=== PATIENT | male | born 1950 | race Caucasian/White ===

== ENCOUNTER → 2017-04-27 | Outpatient (CLI) | payer MEDICARE, MEDICAID ==
[~2017-04-27] VITALS: Ht 175.3 cm; Wt 88.5 kg
[~2017-04-27] MED LIST: ADENOSINE 90 MG/30 ML INJ IV ONE; ASPI81CH43 PO; ATOR20TA50 PO; LEVO750T2 PO; MET25T PO; SACC250C PO
[2017-04-27 15:40] VITALS: BP 140/80
[2017-04-27 16:10] VITALS: BP 138/77
== END | disposition home or self-care (01) ==
LOC: Rad HDHVI 13:38
PROVIDERS: ATTEND Internal Medicine Cardiovascular Disease
DX: I10 Essential (primary) hypertension (principal); E78.00 Pure hypercholesterolemia, unspecified; F17.210 Nicotine dependence, cigarettes, uncomplicated; R42 Dizziness and giddiness; R05 Cough
CPT/HCPCS: 78452; 93005; 93306; 96374; 96375; A9500; G0463; J0153

== ENCOUNTER → 2017-05-10 | Outpatient (CLI) | payer MEDICARE, MEDICAID ==
[~2017-05-10] MED LIST changes: -ADENOSINE 90 MG/30 ML INJ IV ONE
[2017-05-10 12:50] VITALS: BP 139/82
[2017-05-10 13:45] VITALS: BP 129/73
[2017-05-10 16:38] LABS: Basophils # (auto) 0.1 uL; Basophils % (auto) 0.9 % (0.0-2.0); Eosinophils # (auto) 0.4 uL; Eosinophils % (auto) 3.7 % (0.0-7.0); Hematocrit 45.7 % (41.0-53.0); Hemoglobin 15.1 g/dL (13.5-17.5); Lymphocytes # (auto) 2.5 uL; Lymphocytes % (auto) 23.2 % (10.0-50.0); Mean Corpuscular Hemoglobin 32.8 pg (28.0-32.0); Mean Corpuscular Volume 99.4 fL (80.0-100.0); Mean Platelet Volume 8.6 fL (6.9-10.8); Monocytes # (auto) 0.7 uL; Monocytes % (auto) 6.8 % (0.0-12.0); Neutrophils # (auto) 7.1 uL; Neutrophils % (auto) 65.4 % (37.0-80.0); Nucleated Red Blood Cells % 0.2 %; Platelet Count (auto) 274 10^3/uL (140-450); Red Cell Distribution Width 13.8 % (11.8-14.3); White Blood Cell 10.9 10^3/uL (4.4-10.8)
[2017-05-10 16:39] LABS: BUN/Creatinine Ratio 14.4; Potassium 3.9 mmol/L (3.5-5.1)
[2017-05-10 16:42] LABS: INR 0.95 (0.9-1.15); Partial Thromboplastin Time 27.1 sec (22.64-33.71); Prothrombin Time 10.3 sec (9.37-12.3)
== END | disposition home or self-care (01) ==
LOC: Rad HDHVI 12:48
PROVIDERS: ATTEND Internal Medicine Cardiovascular Disease
DX: Z01.818 Encounter for other preprocedural examination (principal); I10 Essential (primary) hypertension; D64.9 Anemia, unspecified; R79.1 Abnormal coagulation profile; E11.9 Type 2 diabetes mellitus without complications
CPT/HCPCS: 36415; 71020; 80048; 85025; 85610; 85730; G0463

== ENCOUNTER 2017-05-12 11:15 | Day surgery (SDC) | payer MEDICARE, MEDICAID ==
[2017-05-12] MEDS ORDERED: IOHEXOL 350 MG/ML 100ML IJ ONE (12:11)
[2017-05-12] MEDS ORDERED: LIDOCAINE 2%HCL (LOCAL ANESTH.) INJ 20ML MDV ONE (12:11)
[2017-05-12] MEDS ORDERED: ANGIOMAX 250 MG VIAL IV ONE (13:31)
[2017-05-12] MEDS ORDERED: SODIUM CHL 0.9% 0 ML ONE (13:32)
[2017-05-12] MEDS ORDERED: fentaNYL CITRATE 100 MCG/2 ML VL ONE (13:32)
[2017-05-12] MEDS ORDERED: MIDAZOLAM HCL 1MG/1ML-2 ML VIAL ONE (13:32)
== END 2017-05-12 16:25 | disposition home or self-care (01) ==
LOC: CATH 11:15
PROVIDERS: ATTEND Internal Medicine Cardiovascular Disease
DX: R94.39 Abnormal result of other cardiovascular function study (principal); R06.02 Shortness of breath; R06.01 Orthopnea; I20.9 Angina pectoris, unspecified
CPT/HCPCS: 93458; C1760; C1769; C1894; J1644; J2250; J3010; J7030; Q9967; 99152; 99153

== ENCOUNTER → 2017-05-22 | Outpatient (CLI) | payer MEDICARE, MEDICAID ==
[2017-05-22 09:00] VITALS: BP 143/83
[2017-05-22 09:30] VITALS: BP 137/79
[2017-05-22 11:46] LABS: Basophils # (auto) 0.1 uL; Eosinophils # (auto) 0.4 uL; Eosinophils % (auto) 3.1 % (0.0-7.0); Hematocrit 46.5 % (41.0-53.0); Hemoglobin 15.5 g/dL (13.5-17.5); Lymphocytes # (auto) 3.7 uL; Lymphocytes % (auto) 28.8 % (10.0-50.0); Mean Corpuscular Hemoglobin 32.6 pg (28.0-32.0); Mean Corpuscular Hgb Conc. 33.3 g/dL (32.0-36.0); Monocytes # (auto) 0.8 uL; Monocytes % (auto) 6.5 % (0.0-12.0); Neutrophils # (auto) 7.8 uL; Neutrophils % (auto) 60.6 % (37.0-80.0); Platelet Count (auto) 240 10^3/uL (140-450); Red Cell Distribution Width 13.6 % (11.8-14.3); White Blood Cell 12.9 10^3/uL (4.4-10.8)
[2017-05-22 11:58] LABS: BUN/Creatinine Ratio 14.1; Calcium 9.1 mg/dL (8.5-10.1); Potassium 4.7 mmol/L (3.5-5.1)
[2017-05-22 11:59] LABS: INR 0.94 (0.9-1.15); Partial Thromboplastin Time 27.1 sec (22.64-33.71); Prothrombin Time 10.2 sec (9.37-12.3)
== END | disposition home or self-care (01) ==
LOC: Rad HDHVI 08:43
PROVIDERS: ATTEND Internal Medicine Cardiovascular Disease
DX: Z01.810 Encounter for preprocedural cardiovascular examination (principal); I70.0 Atherosclerosis of aorta; Z79.01 Long term (current) use of anticoagulants
CPT/HCPCS: 36415; 71020; 80048; 85025; 85610; 85730; 86850; 86900; 86901; 86920; G0463

== ENCOUNTER 2017-05-25 06:58 | Inpatient (IN) | payer MEDICARE, MEDICAID ==
[~2017-05-25] VITALS: Ht 175.3 cm; Wt 87.8 kg
[2017-05-25] MEDS ORDERED: IODIXANOL 320MG/ML 100ML BTL IV ONE (07:36)
[2017-05-25] MEDS ORDERED: LIDOCAINE 2%HCL (LOCAL ANESTH.) INJ 20ML MDV ONE (07:37)
[2017-05-25] MEDS ORDERED: fentaNYL CITRATE 100 MCG/2 ML VL ONE ×2 (07:55→09:24)
[2017-05-25] MEDS ORDERED: ANGIOMAX 250 MG VIAL IV ONE (07:55)
[2017-05-25] MEDS ORDERED: ATROPINE SULF 0.5 MG/5ML SYR ONE (07:56)
[2017-05-25] MEDS ORDERED: MIDAZOLAM HCL 1MG/1ML-2 ML VIAL ONE ×2 (07:56→09:24)
[2017-05-25] MEDS ORDERED: DOPamine 1600MCG/ML D5W 0 ML IV ONE (07:56)
[2017-05-25] MEDS ORDERED: SODIUM CHL 0.9% 0 ML ONE (07:56)
[2017-05-25] MEDS ORDERED: PHENYLEPHRINE HCL 10 MG/ML VL ONE (07:57)
[2017-05-25] MEDS ORDERED: IOHEXOL 350 MG/ML 100ML IJ ONE (09:01)
[2017-05-25] MEDS ORDERED: phytonadione 1 ML ONE (09:42)
[2017-05-25] MEDS ORDERED: ACETAMINOPHEN 500 MG TAB PO PRN (11:15)
[2017-05-25] MEDS ORDERED: HYDROcodone-ACET 5/325MG TAB PO PRN (11:15)
[2017-05-25] MEDS ORDERED: ONDANSETRON HCL 4 MG/2 ML VIAL IV PRN (11:15)
[2017-05-25] MEDS ORDERED: NITROGLYCERIN 0.4 MG SL TAB SL PRN (11:15)
[2017-05-25] MEDS ORDERED: MORPHINE SULF INJ 2 MG/ML SYRINGE 1ML IV PRN (11:15)
[2017-05-25] MEDS ORDERED: ENOXAPARIN SOD 30 MG/0.3 ML SYRINGE ONE (11:30)
[2017-05-25] MEDS ORDERED: ENOXAPARIN SOD 30 MG/0.3 ML SYRINGE IV ONE (11:45)
[2017-05-25] MEDS ORDERED: METOPROLOL TARTRATE 25 MG TAB PO ONE (12:00)
[2017-05-25] MEDS ORDERED: ASPirin 81 mg TAB PO ONE (12:00)
[2017-05-25 12:09] LABS: Basophils # (auto) 0.1 uL; Basophils % (auto) 0.9 % (0.0-2.0); Eosinophils # (auto) 0.3 uL; Eosinophils % (auto) 2.3 % (0.0-7.0); Hematocrit 36.3 % (41.0-53.0); Hemoglobin 12.4 g/dL (13.5-17.5); Lymphocytes # (auto) 2.5 uL; Lymphocytes % (auto) 19.7 % (10.0-50.0); Mean Corpuscular Hemoglobin 33.6 pg (28.0-32.0); Mean Corpuscular Hgb Conc. 34.1 g/dL (32.0-36.0); Mean Corpuscular Volume 98.4 fL (80.0-100.0); Mean Platelet Volume 7.7 fL (6.9-10.8); Monocytes # (auto) 0.7 uL; Monocytes % (auto) 5.8 % (0.0-12.0); Neutrophils % (auto) 71.3 % (37.0-80.0); Nucleated Red Blood Cells % 0.1 %; Platelet Count (auto) 173 10^3/uL (140-450); Red Cell Distribution Width 13.5 % (11.8-14.3); White Blood Cell 12.6 10^3/uL (4.4-10.8)
[2017-05-25] MEDS ORDERED: HYDROmorphone HCL 2 MG/ML VL ONE ×2 (12:27→13:25)
[2017-05-25] MEDS ORDERED: CLOPIDOGREL 300 MG TAB PO ONE (13:15)
[2017-05-25] MEDS ORDERED: HYDROmorphone HCL 2 MG/ML VL IV ONE ×2 (13:15→14:00)
[2017-05-25] MEDS ORDERED: ISOSORBIDE MONONITRATE 60 MG TAB PO ONE (13:36)
[2017-05-25] MEDS ORDERED: cloNIDine HCL 0.1 MG TAB PO ONE (14:15)
[2017-05-25] MEDS ORDERED: NITROGLYCERIN 50MG/250ML 250 ML IV SCH (14:45)
[2017-05-25 15:40] VITALS: BP 146/97
[2017-05-25 16:17] VITALS: BP 146/97
[2017-05-25 20:00] VITALS: BP 100/70
[2017-05-25] MEDS: ATORVASTATIN 20 MG TAB PO SCH (22:02)
[2017-05-25] MEDS: METOPROLOL TARTRATE 25 MG TAB PO SCH (22:02)
[2017-05-25] MEDS: cloNIDine HCL 0.1 MG TAB PO SCH (22:02)
[2017-05-26 08:00] VITALS: BP 100/64
[2017-05-26] MEDS: METOPROLOL TARTRATE 25 MG TAB PO SCH ×2 (09:56→21:17)
[2017-05-26] MEDS: CLOPIDOGREL BISULFATE 75 MG TAB PO SCH (09:57)
[2017-05-26] MEDS: ASPirin 81 mg TAB PO SCH (09:58)
[2017-05-26] MEDS: cloNIDine HCL 0.1 MG TAB PO SCH ×2 (09:58→21:16)
[2017-05-26 12:00] VITALS: BP 108/61
[2017-05-26 16:00] VITALS: BP 122/64
[2017-05-26] MEDS ORDERED: MORPHINE SULFATE 10 MG/ML INJ 1ML SDV IV PRN (16:00)
[2017-05-26 20:00] VITALS: BP 130/63
[2017-05-26] MEDS: ATORVASTATIN 20 MG TAB PO SCH (21:16)
[2017-05-27] VITALS: BP 110/63
[2017-05-27] MEDS: CLOPIDOGREL BISULFATE 75 MG TAB PO SCH (10:32)
[2017-05-27] MEDS: ASPirin 81 mg TAB PO SCH (10:32)
[2017-05-27] MEDS: METOPROLOL TARTRATE 25 MG TAB PO SCH ×2 (10:32→21:13)
[2017-05-27] MEDS: cloNIDine HCL 0.1 MG TAB PO SCH ×2 (10:33→21:14)
[2017-05-27 12:00] VITALS: BP 123/68
[2017-05-27 15:50] VITALS: BP 120/62
[2017-05-27 19:45] VITALS: BP 128/66
[2017-05-27] MEDS: ATORVASTATIN 20 MG TAB PO SCH (21:13)
[2017-05-28] VITALS: BP 103/60
[2017-05-28 08:00] VITALS: BP 106/69
[2017-05-28 09:10] LABS: Basophils # (auto) 0.1 uL; Basophils % (auto) 0.8 % (0.0-2.0); Eosinophils # (auto) 0.3 uL; Eosinophils % (auto) 3.3 % (0.0-7.0); Hematocrit 34.3 % (41.0-53.0); Hemoglobin 11.8 g/dL (13.5-17.5); Lymphocytes # (auto) 3.1 uL; Lymphocytes % (auto) 29.9 % (10.0-50.0); Mean Corpuscular Hemoglobin 33.8 pg (28.0-32.0); Mean Corpuscular Hgb Conc. 34.4 g/dL (32.0-36.0); Mean Corpuscular Volume 98.3 fL (80.0-100.0); Mean Platelet Volume 7.8 fL (6.9-10.8); Monocytes # (auto) 0.6 uL; Monocytes % (auto) 6.1 % (0.0-12.0); Neutrophils # (auto) 6.3 uL; Neutrophils % (auto) 59.9 % (37.0-80.0); Nucleated Red Blood Cells % 0.2 %; Platelet Count (auto) 170 10^3/uL (140-450); Red Cell Distribution Width 13.7 % (11.8-14.3); White Blood Cell 10.5 10^3/uL (4.4-10.8)
[2017-05-28 09:29] LABS: Calcium 8.7 mg/dL (8.5-10.1); Potassium 3.8 mmol/L (3.5-5.1)
[2017-05-28 09:31] LABS: BUN/Creatinine Ratio 17.1
[2017-05-28] MEDS: ASPirin 81 mg TAB PO SCH (09:41)
[2017-05-28] MEDS: METOPROLOL TARTRATE 25 MG TAB PO SCH (09:41)
[2017-05-28] MEDS: CLOPIDOGREL BISULFATE 75 MG TAB PO SCH (09:41)
[2017-05-28] MEDS: cloNIDine HCL 0.1 MG TAB PO SCH (10:00)
[2017-05-28 11:44] VITALS: BP 124/75
[2017-05-28 11:49] VITALS: BP 124/75
== END 2017-05-28 13:00 | disposition home or self-care (01) | DRG 254 ==
LOC: CATH 06:58 → ICU CENTRL 06:59 → DOU IN ICU 07:00
PROVIDERS: ADMIT Internal Medicine Cardiovascular Disease; ATTEND Internal Medicine Cardiovascular Disease
PROC: 04Q Lower Arteries, Repair (ICD-10-PCS; principal; 2017-05-25)
PROC: 04QL3ZZ Repair Left Femoral Artery, Percutaneous Approach (ICD-10-PCS; 2017-05-25)
PROC: B41G1ZZ Fluoroscopy of Left Lower Extremity Arteries using Low Osmolar Contrast (ICD-10-PCS; 2017-05-25)
DX: I71.4 Abdominal aortic aneurysm, without rupture (principal); I10 Essential (primary) hypertension; I25.10 Atherosclerotic heart disease of native coronary artery without angina pectoris; I73.9 Peripheral vascular disease, unspecified; S30.1XXA Contusion of abdominal wall, initial encounter; W26.8XXA Contact with other sharp object(s), not elsewhere classified, initial encounter; Y93.89 Activity, other specified; Y92.89 Other specified places as the place of occurrence of the external cause; Y99.8 Other external cause status
CPT/HCPCS: 35226; 36415; 71020; 75710; 80048; 85025; 85610; 85730; 86850; 86900; 86901; 86920; 87081; 93926; 99152; 99153; G0463; J0461; J2250; J2405; J3430; Q9967

== ENCOUNTER → 2017-06-07 | Outpatient (CLI) | payer MEDICARE, MEDICAID ==
[~2017-06-07] MED LIST changes: -LEVO750T2 PO; -SACC250C PO
== END | disposition home or self-care (01) ==
LOC: Rad HDHVI 13:49
PROVIDERS: ATTEND Internal Medicine Cardiovascular Disease
DX: I71.4 Abdominal aortic aneurysm, without rupture (principal)
CPT/HCPCS: 93926

== ENCOUNTER → 2017-07-05 | Outpatient (CLI) | payer MEDICARE, MEDICAID ==
[~2017-07-05] MED LIST changes: +CLOP75TA28 PO
[2017-07-05 09:38] VITALS: BP 135/76
[2017-07-05 10:30] VITALS: BP 151/69
[2017-07-05 12:49] LABS: Basophils # (auto) 0.1 uL; Basophils % (auto) 0.8 % (0.0-2.0); Eosinophils # (auto) 0.3 uL; Eosinophils % (auto) 3.7 % (0.0-7.0); Hematocrit 42.6 % (41.0-53.0); Hemoglobin 14.4 g/dL (13.5-17.5); Lymphocytes # (auto) 1.7 uL; Lymphocytes % (auto) 19.8 % (10.0-50.0); Mean Corpuscular Hemoglobin 33.4 pg (28.0-32.0); Mean Corpuscular Hgb Conc. 33.7 g/dL (32.0-36.0); Mean Corpuscular Volume 99.3 fL (80.0-100.0); Mean Platelet Volume 7.9 fL (6.9-10.8); Monocytes # (auto) 0.5 uL; Monocytes % (auto) 6.4 % (0.0-12.0); Neutrophils # (auto) 5.9 uL; Neutrophils % (auto) 69.3 % (37.0-80.0); Nucleated Red Blood Cells % 0.4 %; Platelet Count (auto) 210 10^3/uL (140-450); Red Cell Distribution Width 14.1 % (11.8-14.3); White Blood Cell 8.5 10^3/uL (4.4-10.8)
[2017-07-05 12:56] LABS: INR 0.93 (0.9-1.15); Partial Thromboplastin Time 26.5 sec (22.64-33.71); Prothrombin Time 10.1 sec (9.37-12.3)
[2017-07-05 13:26] LABS: Calcium 8.6 mg/dL (8.5-10.1); Potassium 4.2 mmol/L (3.5-5.1)
== END | disposition home or self-care (01) ==
LOC: Rad HDHVI 08:48
PROVIDERS: ATTEND Internal Medicine Cardiovascular Disease
DX: Z01.818 Encounter for other preprocedural examination (principal); I10 Essential (primary) hypertension; D64.9 Anemia, unspecified; R79.1 Abnormal coagulation profile
CPT/HCPCS: 36415; 71020; 80048; 80061; 84153; 85025; 85610; 85730; 93005; G0463

== ENCOUNTER 2017-07-14 12:45 | Day surgery (SDC) | payer MEDICARE, MEDICAID ==
[~2017-07-14] VITALS: Ht 175.3 cm; Wt 88.0 kg
[2017-07-14] MEDS ORDERED: LIDOCAINE 2%HCL (LOCAL ANESTH.) INJ 20ML MDV ONE (13:22)
[2017-07-14] MEDS ORDERED: IOHEXOL 350 MG/ML 100ML IJ ONE (13:22)
[2017-07-14] MEDS ORDERED: MIDAZOLAM HCL 1MG/1ML-2 ML VIAL ONE (14:30)
[2017-07-14] MEDS ORDERED: ANGIOMAX 250 MG VIAL IV ONE (14:31)
[2017-07-14] MEDS ORDERED: fentaNYL CITRATE 100 MCG/2 ML VL ONE (14:31)
[2017-07-14] MEDS ORDERED: SODIUM CHL 0.9% 100 ML ONE (14:31)
== END 2017-07-14 17:40 | disposition home or self-care (01) ==
LOC: CATH 12:45
PROVIDERS: ATTEND Internal Medicine Cardiovascular Disease
DX: I73.9 Peripheral vascular disease, unspecified (principal); I71.4 Abdominal aortic aneurysm, without rupture; Z88.8 Allergy status to other drugs, medicaments and biological substances; I20.9 Angina pectoris, unspecified; I10 Essential (primary) hypertension; E78.5 Hyperlipidemia, unspecified; E78.00 Pure hypercholesterolemia, unspecified
CPT/HCPCS: 36246; 75716; C1760; C1769; C1887; C1894; J1644; J2250; J3010; J7030; Q9967; 99152

== ENCOUNTER → 2017-08-08 | Outpatient (CLI) | payer MEDICARE, MEDICAID ==
[2017-08-08 08:15] VITALS: BP 150/91
[2017-08-08 08:45] VITALS: BP 143/82
[2017-08-08 12:10] LABS: Basophils # (auto) 0.1 uL; Basophils % (auto) 1.2 % (0.0-2.0); Eosinophils # (auto) 0.4 uL; Hematocrit 44.3 % (41.0-53.0); Hemoglobin 14.8 g/dL (13.5-17.5); Lymphocytes # (auto) 3.2 uL; Lymphocytes % (auto) 32.7 % (10.0-50.0); Mean Corpuscular Hemoglobin 32.7 pg (28.0-32.0); Mean Corpuscular Hgb Conc. 33.5 g/dL (32.0-36.0); Mean Corpuscular Volume 97.7 fL (80.0-100.0); Monocytes # (auto) 0.6 uL; Monocytes % (auto) 6.1 % (0.0-12.0); Neutrophils # (auto) 5.5 uL; Platelet Count (auto) 224 10^3/uL (140-450); Red Blood Cells 4.54 10^6/uL (4.5-5.90); Red Cell Distribution Width 14.3 % (11.8-14.3); White Blood Cell 9.8 10^3/uL (4.4-10.8)
[2017-08-08 12:21] LABS: INR 0.96 (0.9-1.15); Partial Thromboplastin Time 25.4 sec (22.64-33.71); Prothrombin Time 10.5 sec (9.37-12.3)
[2017-08-08 12:30] LABS: BUN/Creatinine Ratio 15.6; Calcium 8.6 mg/dL (8.5-10.1); Potassium 4.3 mmol/L (3.5-5.1)
== END | disposition home or self-care (01) ==
LOC: Rad HDHVI 08:02
PROVIDERS: ATTEND Internal Medicine Cardiovascular Disease
DX: Z01.812 Encounter for preprocedural laboratory examination (principal); D64.9 Anemia, unspecified; I10 Essential (primary) hypertension; R79.1 Abnormal coagulation profile
CPT/HCPCS: 36415; 71046; 80048; 85025; 85610; 85730; 93005; G0463

== ENCOUNTER 2017-08-10 06:56 | Inpatient (IN) | payer MEDICARE, MEDICAID ==
[~2017-08-10] VITALS: Ht 175.3 cm; Wt 95.7 kg
[2017-08-10] MEDS ORDERED: LIDOCAINE 2%HCL (LOCAL ANESTH.) INJ 20ML MDV ONE ×2 (07:29→09:39)
[2017-08-10] MEDS ORDERED: HEPARIN IN NS 1000Units/500mL 1,500 ML ONE (07:29)
[2017-08-10] MEDS ORDERED: IOHEXOL 350 MG/ML 100ML IJ ONE (07:29)
[2017-08-10] MEDS ORDERED: PHENYLEPHRINE HCL 10 MG/ML VL ONE (07:51)
[2017-08-10] MEDS ORDERED: ANGIOMAX 250 MG VIAL IV ONE (07:51)
[2017-08-10] MEDS ORDERED: EPINEPHrine HCL 1 MG/10 ML SYRG ONE (07:52)
[2017-08-10] MEDS ORDERED: fentaNYL CITRATE 100 MCG/2 ML VL ONE ×2 (07:52→10:05)
[2017-08-10] MEDS ORDERED: MIDAZOLAM HCL 1MG/1ML-2 ML VIAL ONE ×2 (07:52→10:05)
[2017-08-10] MEDS ORDERED: DOPamine 1600MCG/ML D5W 0 ML IV ONE (07:53)
[2017-08-10] MEDS ORDERED: ATROPINE SULF 0.5 MG/5ML SYR ONE (07:53)
[2017-08-10] MEDS ORDERED: METOCLOPRAMIDE HCL 5MG/ml INJ 2ml VIAL ONE (11:33)
[2017-08-10] MEDS ORDERED: ZOLPIDEM TARTRATE 5 MG TAB PO PRN (12:00)
[2017-08-10] MEDS ORDERED: ONDANSETRON HCL 4 MG/2 ML VIAL IV PRN (12:00)
[2017-08-10] MEDS ORDERED: MORPHINE SULF INJ 2 MG/ML SYRINGE 1ML IV PRN (12:00)
[2017-08-10] MEDS ORDERED: ACETAMINOPHEN 500 MG TAB PO PRN (12:00)
[2017-08-10] MEDS ORDERED: LORazepam 0.5 MG TAB PO PRN (12:00)
[2017-08-10] MEDS ORDERED: EPOETIN ALFA 10,000 UNIT/1 ML VIAL SC ONE (12:00)
[2017-08-10] MEDS ORDERED: HYDROcodone-ACET 5/325MG TAB PO PRN (12:00)
[2017-08-10] MEDS ORDERED: METOCLOPRAMIDE HCL 5MG/ml INJ 2ml VIAL IV ONE (12:15)
[2017-08-10 12:26] LABS: Basophils # (auto) 0.1 uL; Basophils % (auto) 0.9 % (0.0-2.0); Eosinophils # (auto) 0.3 uL; Eosinophils % (auto) 2.9 % (0.0-7.0); Hematocrit 41.4 % (41.0-53.0); Hemoglobin 13.7 g/dL (13.5-17.5); Lymphocytes # (auto) 2.8 uL; Lymphocytes % (auto) 25.5 % (10.0-50.0); Mean Corpuscular Hemoglobin 32.2 pg (28.0-32.0); Mean Corpuscular Volume 97.5 fL (80.0-100.0); Monocytes # (auto) 0.7 uL; Monocytes % (auto) 6.2 % (0.0-12.0); Neutrophils # (auto) 7.1 uL; Neutrophils % (auto) 64.5 % (37.0-80.0); Nucleated Red Blood Cells % 0.2 %; Platelet Count (auto) 219 10^3/uL (140-450); Red Blood Cells 4.25 10^6/uL (4.5-5.90)
[2017-08-10 16:55] VITALS: BP 150/84
[2017-08-10 17:00] VITALS: BP 150/84
[2017-08-10 22:00] VITALS: BP 159/94
[2017-08-10] MEDS ORDERED: ATORVASTATIN 20 MG TAB PO SCH (22:00)
[2017-08-10] MEDS: METOPROLOL TARTRATE 25 MG TAB PO SCH (22:11)
[2017-08-11 05:00] VITALS: BP 159/91
[2017-08-11 09:00] VITALS: BP 145/91
[2017-08-11] MEDS ORDERED: ASPirin 81 mg TAB PO SCH (10:00)
[2017-08-11] MEDS ORDERED: CLOPIDOGREL BISULFATE 75 MG TAB PO SCH (10:00)
[2017-08-11] MEDS: METOPROLOL TARTRATE 25 MG TAB PO SCH (10:20)
[2017-08-11 13:00] VITALS: BP 161/99
[2017-08-11 15:00] VITALS: BP 145/91
[2017-08-11 15:21] VITALS: BP 145/91
[2017-08-11 17:00] VITALS: BP 161/88
== END 2017-08-11 17:25 | disposition home or self-care (01) | DRG 269 ==
LOC: CATH 06:56 → TELE-CENTR 06:57
PROVIDERS: ADMIT Internal Medicine Cardiovascular Disease; ATTEND Internal Medicine Cardiovascular Disease
PROC: 04V03DZ Restriction of Abdominal Aorta with Intraluminal Device, Percutaneous Approach (ICD-10-PCS; principal; 2017-08-10)
PROC: 04QK3ZZ Repair Right Femoral Artery, Percutaneous Approach (ICD-10-PCS; 2017-08-10)
DX: I71.4 Abdominal aortic aneurysm, without rupture (principal); E78.5 Hyperlipidemia, unspecified; I10 Essential (primary) hypertension; I25.10 Atherosclerotic heart disease of native coronary artery without angina pectoris; I73.9 Peripheral vascular disease, unspecified; Z86.79 Personal history of other diseases of the circulatory system
CPT/HCPCS: 34709; 36415; 85025; 86850; 86900; 86901; 86920; 86922; 99152; 99153; J0461; J0885; J2250

== ENCOUNTER → 2017-09-15 | Outpatient (CLI) | payer MEDICARE, MEDICAID ==
[~2017-09-15] MED LIST changes: +IOHEXOL 350 MG/ML 100ML IJ ONE
[2017-09-15 09:00] VITALS: BP 158/98
[2017-09-15 09:25] VITALS: BP 159/84
[2017-09-15 12:32] LABS: Basophils # (auto) 0.1 uL; Eosinophils # (auto) 0.3 uL; Eosinophils % (auto) 4.3 % (0.0-7.0); Mean Corpuscular Hemoglobin 32.1 pg (28.0-32.0); Mean Corpuscular Hgb Conc. 33.3 g/dL (32.0-36.0); Mean Corpuscular Volume 96.4 fL (80.0-100.0); Monocytes # (auto) 0.6 uL; Neutrophils # (auto) 4.8 uL; Neutrophils % (auto) 60.7 % (37.0-80.0); Nucleated Red Blood Cells % 0.4 %; Platelet Count (auto) 181 10^3/uL (140-450); Red Blood Cells 4.36 10^6/uL (4.5-5.90); Red Cell Distribution Width 14.6 % (11.8-14.3); White Blood Cell 7.9 10^3/uL (4.4-10.8)
[2017-09-15 12:47] LABS: BUN/Creatinine Ratio 17.5; Calcium 9.5 mg/dL (8.5-10.1); Potassium 4.1 mmol/L (3.5-5.1)
== END | disposition home or self-care (01) ==
LOC: Rad HDHVI 08:49
PROVIDERS: ATTEND Internal Medicine Cardiovascular Disease
DX: I71.4 Abdominal aortic aneurysm, without rupture (principal); D64.9 Anemia, unspecified; I10 Essential (primary) hypertension; K76.0 Fatty (change of) liver, not elsewhere classified; N40.0 Benign prostatic hyperplasia without lower urinary tract symptoms
CPT/HCPCS: 36415; 74175; 80048; 82565; 85025; 96374; G0463; Q9967

== ENCOUNTER → 2017-11-10 | Outpatient (CLI) | payer MEDICARE, MEDICAID ==
[~2017-11-10] MED LIST changes: -IOHEXOL 350 MG/ML 100ML IJ ONE
== END | disposition home or self-care (01) ==
LOC: LAB 13:36
PROVIDERS: ATTEND Internal Medicine
DX: R97.21 Rising PSA following treatment for malignant neoplasm of prostate (principal); I10 Essential (primary) hypertension; E11.9 Type 2 diabetes mellitus without complications; E78.00 Pure hypercholesterolemia, unspecified; E78.5 Hyperlipidemia, unspecified; Z79.01 Long term (current) use of anticoagulants
CPT/HCPCS: 84153

== ENCOUNTER → 2018-04-04 | Outpatient (CLI) | payer MEDICARE, MEDICAID ==
[~2018-04-04] MED LIST changes: +IOHEXOL 350 MG/ML 100ML IJ ONE
[2018-04-04 09:10] VITALS: BP 147/87
[2018-04-04 10:00] VITALS: BP 161/88
== END | disposition home or self-care (01) ==
LOC: Rad HDHVI 09:01
PROVIDERS: ATTEND Internal Medicine Cardiovascular Disease
DX: I71.9 Aortic aneurysm of unspecified site, without rupture (principal); E55.9 Vitamin D deficiency, unspecified; K76.0 Fatty (change of) liver, not elsewhere classified; N40.1 Benign prostatic hyperplasia with lower urinary tract symptoms; Z95.828 Presence of other vascular implants and grafts
CPT/HCPCS: 74175; 82306; 82565; G0463; Q9967

== ENCOUNTER → 2018-04-19 | Outpatient (CLI) | payer MEDICARE, MEDICAID ==
[~2018-04-19] VITALS: Ht 175.3 cm; Wt 97.5 kg
[~2018-04-19] MED LIST changes: +ADENOSINE 82 MG in GIVE UN-DILUTED 0 ML IV ONE; +ADENOSINE 90 MG/30 ML INJ IV ONE; -IOHEXOL 350 MG/ML 100ML IJ ONE
== END | disposition home or self-care (01) ==
LOC: Rad HDHVI 09:53
PROVIDERS: ATTEND Internal Medicine Cardiovascular Disease
DX: C61 Malignant neoplasm of prostate (principal); I10 Essential (primary) hypertension; J06.9 Acute upper respiratory infection, unspecified; I71.4 Abdominal aortic aneurysm, without rupture; Z88.1 Allergy status to other antibiotic agents
CPT/HCPCS: 78452; 93005; 96374; 96375; A9500; J0153

== ENCOUNTER → 2020-06-19 | Outpatient (CLI) | payer MEDICARE, MEDICAID ==
[~2020-06-19] MED LIST changes: -ADENOSINE 82 MG in GIVE UN-DILUTED 0 ML IV ONE; -ADENOSINE 90 MG/30 ML INJ IV ONE
== END | disposition home or self-care (01) ==
LOC: LAB 13:06
PROVIDERS: ATTEND Internal Medicine
DX: Z12.11 Encounter for screening for malignant neoplasm of colon (principal); R73.01 Impaired fasting glucose
CPT/HCPCS: 36415; 82270; 83036

== ENCOUNTER → 2020-11-13 | Outpatient (CLI) | payer MEDICARE ==
[2020-11-13 11:01] LABS: Alanine Aminotransferase 58 U/L (16-61); Aspartate Aminotransferase 27 U/L (15-37)
== END | disposition home or self-care (01) ==
LOC: LAB 09:54
PROVIDERS: ATTEND Internal Medicine
DX: E11.9 Type 2 diabetes mellitus without complications (principal); E78.1 Pure hyperglyceridemia
CPT/HCPCS: 36415; 82607; 83036; 84450; 84460

== ENCOUNTER → 2021-11-01 | Outpatient (CLI) | payer MEDICARE ==
[2021-11-01 13:55] LABS: Basophils # (auto) 0.1 10 ^3/uL (0-0.2); Eosinophils # (auto) 0.2 10 ^3/uL (0-0.8); Lymphocytes # (auto) 0.9 10 ^3/uL (0.4-5.4)
[2021-11-01 13:56] LABS: Basophils % (auto) 1.4 % (0.0-2.0); Eosinophils % (auto) 3.2 % (0.0-7.0); Hematocrit 40.9 % (41.0-53.0); Hemoglobin 14.5 g/dL (13.5-17.5); Lymphocytes % (auto) 14.9 % (10.0-50.0); Mean Corpuscular Hemoglobin 35.5 pg (28.0-32.0); Mean Corpuscular Hgb Conc. 35.5 g/dL (32.0-36.0); Mean Corpuscular Volume 100.1 fL (80.0-100.0); Monocytes # (auto) 0.5 10 ^3/uL (0-1.3); Monocytes % (auto) 7.6 % (0.0-12.0); Neutrophils # (auto) 4.6 10 ^3/uL (1.6-8.6); Neutrophils % (auto) 72.9 % (37.0-80.0); Nucleated Red Blood Cells % 0.1 %; Red Blood Cells 4.08 10^6/uL (4.5-5.90); Red Cell Distribution Width 13.4 % (11.8-14.3); White Blood Cell 6.2 10^3/uL (4.4-10.8)
[2021-11-01 14:39] LABS: Albumin 3.9 g/dL (3.4-5.0); Calcium 8.9 mg/dL (8.5-10.1); Potassium 4.5 mmol/L (3.5-5.1)
[2021-11-01 14:41] LABS: BUN/Creatinine Ratio 12.3
[2021-11-01 14:44] LABS: Bilirubin, Total 0.7 mg/dL (0.2-1.0); Total Protein 7.2 g/dL (6.4-8.2)
== END | disposition home or self-care (01) ==
LOC: LAB 13:43
PROVIDERS: ATTEND Internal Medicine
DX: E11.9 Type 2 diabetes mellitus without complications (principal); I10 Essential (primary) hypertension; E78.5 Hyperlipidemia, unspecified
CPT/HCPCS: 36415; 80053; 83036; 85025

== ENCOUNTER 2022-07-04 08:16 | Inpatient (IN) | payer MEDICARE, MEDICAID ==
[~2022-07-04] VITALS: Ht 175.3 cm; Wt 106.7 kg
[2022-07-04] MEDS ORDERED: ALBUTEROL SULF 2.5 MG/0.5ML(0.5%) NEB SOLN NEB ONE (08:30)
[2022-07-04] MEDS ORDERED: IPRATROPIUM BROM 0.5 MG/2.5ML INH SOL NEB ONE (08:30)
[2022-07-04 08:45] LABS: Basophils # (auto) 0 10 ^3/uL (0-0.2); Basophils % (auto) 0.4 % (0.0-2.0); Eosinophils # (auto) 0 10 ^3/uL (0-0.8); Eosinophils % (auto) 0.2 % (0.0-7.0); Hematocrit 42.4 % (41.0-53.0); Hemoglobin 14.1 g/dL (13.5-17.5); Lymphocytes # (auto) 0.7 10 ^3/uL (0.4-5.4); Mean Corpuscular Hemoglobin 33.1 pg (28.0-32.0); Mean Corpuscular Hgb Conc. 33.3 g/dL (32.0-36.0); Mean Corpuscular Volume 99.4 fL (80.0-100.0); Monocytes # (auto) 0.6 10 ^3/uL (0-1.3); Monocytes % (auto) 4.8 % (0.0-12.0); Neutrophils # (auto) 11.9 10 ^3/uL (1.6-8.6); Neutrophils % (auto) 89.6 % (37.0-80.0); Nucleated Red Blood Cells % 0.1 %; Red Blood Cells 4.27 10^6/uL (4.5-5.90); Red Cell Distribution Width 14.2 % (11.8-14.3); White Blood Cell 13.3 10^3/uL (4.4-10.8)
[2022-07-04] MEDS ORDERED: ETOMIDATE (2MG/ML) 20ML VIAL IV ONE (09:00)
[2022-07-04] MEDS ORDERED: SUCCINYLCHOLINE CHLORIDE 20 MG/ML 10ML VIAL IV ONE (09:00)
[2022-07-04] MEDS ORDERED: MIDAZOLAM DRIP 50 mg/50mL 50 ML IV SCH (09:00)
[2022-07-04] MEDS ORDERED: MIDAZOLAM DRIP 50 mg/50mL 50 ML IV ONE (09:09)
[2022-07-04 09:13] LABS: Albumin 2.9 g/dL (3.4-5.0); Anion Gap 15 (5-15); Blood Urea Nitrogen 15 mg/dL (7-18); Calcium 8.6 mg/dL (8.5-10.1); Carbon Dioxide 19 mmol/L (21-32); Chloride 105 mmol/L (98-107); Glucose 176 mg/dL (74-106); Potassium 3.8 mmol/L (3.5-5.1); Sodium 139 mmol/L (136-145)
[2022-07-04 09:16] LABS: Alanine Aminotransferase 63 U/L (16-61); Aspartate Aminotransferase 42 U/L (15-37); BUN/Creatinine Ratio 10.9; GFR African American 66 mL/min; GFR Non-African American 54 mL/min
[2022-07-04] MEDS ORDERED: methylPREDNISolone SOD SUCC 125 MG/2 ML VL ONE (09:16)
[2022-07-04 09:18] LABS: Alkaline Phosphatase 120 U/L (45-117); Bilirubin, Total 2.1 mg/dL (0.2-1.0); Total Protein 7.3 g/dL (6.4-8.2)
[2022-07-04] MEDS ORDERED: PROPOFOL 100 ML IV ONE (09:29)
[2022-07-04] MEDS ORDERED: methylPREDNISolone SOD SUCC 125 MG/2 ML VL IV ONE (09:30)
[2022-07-04] MEDS ORDERED: AZITHROMYCIN 500MG/ 250ML 250 ML IV ONE (09:30)
[2022-07-04] MEDS ORDERED: cefTRIAXone 1GM/50ML D5W 50 ML IV ONE (09:30)
[2022-07-04] MEDS: MIDAZOLAM DRIP 50 mg/50mL 50 ML IV SCH ×3 (09:31→22:17)
[2022-07-04] MEDS: PROPOFOL 100 ML IV SCH ×2 (09:35→17:30)
[2022-07-04] MEDS: fentaNYL Drip 2500mCg/250mlNS 250 ML IV SCH (10:05)
[2022-07-04 11:10] LABS: Lactic Acid w/Reflex 2.9 mmol/L (0.4-2.0)
[2022-07-04] MEDS ORDERED: ALBUTEROL SULF HFA 90MCG INH 200DOSE IN PRN (11:45)
[2022-07-04] MEDS ORDERED: NITROGLYCERIN 0.4 MG SL TAB SL PRN (11:45)
[2022-07-04] MEDS ORDERED: MORPHINE SULFATE INJ 2 MG/ml SYRG IV PRN (11:45)
[2022-07-04] MEDS ORDERED: REMDESIVIR PER PHARMACY 0 ML IV SCH (11:45)
[2022-07-04] MEDS ORDERED: SODIUM CHLORIDE 0.9% 3,000 ML IV ONE (12:15)
[2022-07-04 13:39] VITALS: BP 111/59
[2022-07-04] MEDS: SODIUM CHLORIDE 0.9% 1,000 ML IV SCH (13:39)
[2022-07-04 13:53] VITALS: BP 110/65
[2022-07-04 14:53] LABS: Basophils # (auto) 0 10 ^3/uL (0-0.2); Eosinophils # (auto) 0 10 ^3/uL (0-0.8); Hemoglobin 11.6 g/dL (13.5-17.5); Lymphocytes # (auto) 0.2 10 ^3/uL (0.4-5.4); Mean Corpuscular Hemoglobin 33.2 pg (28.0-32.0); Monocytes # (auto) 0.2 10 ^3/uL (0-1.3); Neutrophils # (auto) 8.6 10 ^3/uL (1.6-8.6)
[2022-07-04 15:08] LABS: Basophils % (auto) 0.3 % (0.0-2.0); Hematocrit 35.4 % (41.0-53.0); Lymphocytes % (auto) 1.9 % (10.0-50.0); Mean Corpuscular Hgb Conc. 32.7 g/dL (32.0-36.0); Mean Corpuscular Volume 101.6 fL (80.0-100.0); Monocytes % (auto) 2.3 % (0.0-12.0); Neutrophils % (auto) 95.5 % (37.0-80.0); Red Blood Cells 3.48 10^6/uL (4.5-5.90); Red Cell Distribution Width 14.7 % (11.8-14.3)
[2022-07-04 15:53] LABS: INR 1.09 (0.9-1.15)
[2022-07-04 16:18] LABS: Urine Amorphous Crystal FEW /hpf (None Seen); Urine Bacteria FEW /hpf (None Seen); Urine Blood 3+ /uL (Negative); Urine Mucus FEW (None Seen); Urine Specific Gravity 1.027 (1.001-1.035); Urine Sperm PRESENT /hpf (None Seen); Urine WBC 4 /hpf (0 - 3)
[2022-07-04 16:19] VITALS: BP 114/66
[2022-07-04 16:45] LABS: Albumin 2.4 g/dL (3.4-5.0); BUN/Creatinine Ratio 15.7; Bilirubin, Total 1.5 mg/dL (0.2-1.0); Calcium 8.2 mg/dL (8.5-10.1); Magnesium 2.9 mg/dL (1.6-2.6); Total Protein 7.2 g/dL (6.4-8.2)
[2022-07-04 16:46] LABS: Cholesterol 70 mg/dL (< 200); Triglycerides 139 mg/dL (< 150)
[2022-07-04 16:49] LABS: HDL Cholesterol 25 mg/dL (40-59); LDL Cholesterol 41 mg/dL (< 100)
[2022-07-04 17:03] LABS: Thyroid Stimulating Hormone 0.35 uIU/mL (0.358-3.74)
[2022-07-04 17:30] LABS: Alcohol, Urine < 3.0 mg/dL (0-10); Amphetamine Screen, Urine NEGATIVE (NEGATIVE); Barbiturate Scree,Urine NEGATIVE (NEGATIVE); Benzodiazephine Screen, Urine POSITIVE (NEGATIVE); Cannabinoid Screen, Urine NEGATIVE (NEGATIVE); Cocaine Screen, Urine NEGATIVE (NEGATIVE); Opiate Scree,Urine NEGATIVE (NEGATIVE); Phencyclidine Screen, Urine NEGATIVE (NEGATIVE)
[2022-07-04 18:12] LABS: BUN/Creatinine Ratio 17.4; Potassium 4.8 mmol/L (3.5-5.1)
[2022-07-04 18:42] LABS: CRP High Sensitivity 16.1 mg/dL (< 0.3)
[2022-07-04 19:57] VITALS: BP 102/58
[2022-07-04] MEDS ORDERED: REMDESIVIR 200 MG in NS 210ml LOADING DOSE ADULT IV ONE (20:45)
[2022-07-04 21:48] VITALS: BP 101/53
[2022-07-04] MEDS: METOPROLOL TARTRATE 25 MG TAB PO SCH (22:00)
[2022-07-04] MEDS: ATORVASTATIN 20 MG TAB PO SCH (22:00)
[2022-07-04] MEDS ORDERED: BUDESONIDE (INHALATION) 180 MCG IH IN SCH (22:00)
[2022-07-04] MEDS: ENOXAPARIN SOD 40 MG/0.4 ML SYRINGE SC SCH (22:13)
[2022-07-04] MEDS: NOREPINEPHRINE 8 MG/250ML KIT 250 ML IV SCH (23:19)
[2022-07-05] VITALS (30 sets, daily range): BP systolic 101–168; BP diastolic 39–63
[2022-07-05 04:05] LABS: Basophils # (auto) 0 10 ^3/uL (0-0.2); Basophils % (auto) 0.2 % (0.0-2.0); Eosinophils # (auto) 0 10 ^3/uL (0-0.8); Hematocrit 35.5 % (41.0-53.0); Hemoglobin 11.8 g/dL (13.5-17.5); Lymphocytes # (auto) 0.2 10 ^3/uL (0.4-5.4); Lymphocytes % (auto) 2.1 % (10.0-50.0); Mean Corpuscular Hemoglobin 33.1 pg (28.0-32.0); Mean Corpuscular Hgb Conc. 33.1 g/dL (32.0-36.0); Monocytes # (auto) 0.3 10 ^3/uL (0-1.3); Neutrophils % (auto) 93.7 % (37.0-80.0); Red Blood Cells 3.55 10^6/uL (4.5-5.90); Red Cell Distribution Width 14.4 % (11.8-14.3); White Blood Cell 8.5 10^3/uL (4.4-10.8)
[2022-07-05 04:23] LABS: Potassium 5.2 mmol/L (3.5-5.1)
[2022-07-05 04:28] LABS: Albumin 2.4 g/dL (3.4-5.0); BUN/Creatinine Ratio 24.4; Calcium 7.6 mg/dL (8.5-10.1)
[2022-07-05 04:30] LABS: Bilirubin, Total 1.1 mg/dL (0.2-1.0)
[2022-07-05] MEDS: SODIUM CHLORIDE 0.9% 1,000 ML IV SCH ×3 (04:46→18:54)
[2022-07-05] MEDS: ASPirin 81 mg TAB PO SCH (09:44)
[2022-07-05] MEDS: PANTOPRAZOLE 40 MG/10 ML VIAL INJ IV SCH (09:44)
[2022-07-05] MEDS: ENOXAPARIN SOD 40 MG/0.4 ML SYRINGE SC SCH ×2 (09:45→22:29)
[2022-07-05] MEDS: cefTRIAXone 1GM/50ML D5W 50 ML IV SCH (09:45)
[2022-07-05] MEDS: DexAMETHasone SOD PHOS 10MG/1ML VIAL INJ IV SCH (09:45)
[2022-07-05] MEDS: METOPROLOL TARTRATE 25 MG TAB PO SCH ×2 (09:58→22:00)
[2022-07-05] MEDS: fentaNYL Drip 2500mCg/250mlNS 250 ML IV SCH (09:59)
[2022-07-05] MEDS ORDERED: IOHEXOL 350 MG/ML 100ML IJ ONE (10:33)
[2022-07-05] MEDS: AZITHROMYCIN 500MG/ 250ML 250 ML IV SCH (11:15)
[2022-07-05] MEDS ORDERED: SODIUM BICARBONATE 8.4% INJ 50ML SYRINGE IV ONE (12:15)
[2022-07-05] MEDS ORDERED: FUROSEMIDE 20 MG/2 ML VIAL IV ONE (12:15)
[2022-07-05] MEDS ORDERED: InsuLIN REG 1unit/0.01ml Soln (100units/ml) IV ONE (12:15)
[2022-07-05] MEDS ORDERED: DEXTROSE (50%) 50ML SYRG IV ONE (12:15)
[2022-07-05] MEDS ORDERED: DEXTROSE (50%) 50ML SYRG IV PRN (15:00)
[2022-07-05] MEDS: REMDESIVIR 100mg 100 MG in SODIUM CHL 0.9% 230 ML IV SCH (15:41)
[2022-07-05] MEDS: MIDAZOLAM DRIP 50 mg/50mL 50 ML IV SCH ×3 (15:41→23:33)
[2022-07-05] MEDS: ACCU-CHEK COMFORT CURVE STRIP VI SCH ×2 (17:24→23:53)
[2022-07-05] MEDS: InsuLIN REG 1unit/0.01ml Soln (100units/ml) SC SCH ×2 (17:24→23:59)
[2022-07-05] MEDS ORDERED: METO-158 PO (18:49)
[2022-07-05] MEDS: SODIUM CHLOR 0.9% PF (SALINE LOCK) 10ML VIAL/SYR IV SCH (22:15)
[2022-07-05] MEDS: ATORVASTATIN 20 MG TAB PO SCH (22:28)
[2022-07-05] MEDS: NOREPINEPHRINE 8 MG/250ML KIT 250 ML IV SCH (23:15)
[2022-07-06] VITALS (88 sets, daily range): BP systolic 90–145; BP diastolic 36–86
[2022-07-06] MEDS: MIDAZOLAM DRIP 50 mg/50mL 50 ML IV SCH ×3 (02:49→09:47)
[2022-07-06] MEDS: fentaNYL Drip 2500mCg/250mlNS 250 ML IV SCH (03:55)
[2022-07-06 04:35] LABS: Basophils # (auto) 0.1 10 ^3/uL (0-0.2); Basophils % (auto) 0.8 % (0.0-2.0); Eosinophils # (auto) 0 10 ^3/uL (0-0.8); Hematocrit 33.6 % (41.0-53.0); Hemoglobin 11.1 g/dL (13.5-17.5); Lymphocytes # (auto) 0.2 10 ^3/uL (0.4-5.4); Lymphocytes % (auto) 2.2 % (10.0-50.0); Mean Corpuscular Hemoglobin 33.3 pg (28.0-32.0); Mean Corpuscular Hgb Conc. 33.1 g/dL (32.0-36.0); Mean Corpuscular Volume 100.8 fL (80.0-100.0); Monocytes # (auto) 0.5 10 ^3/uL (0-1.3); Monocytes % (auto) 5.2 % (0.0-12.0); Neutrophils # (auto) 8.9 10 ^3/uL (1.6-8.6); Neutrophils % (auto) 91.8 % (37.0-80.0); Nucleated Red Blood Cells % 0.2 %; Red Blood Cells 3.34 10^6/uL (4.5-5.90); Red Cell Distribution Width 14.8 % (11.8-14.3); White Blood Cell 9.7 10^3/uL (4.4-10.8)
[2022-07-06 04:54] LABS: BUN/Creatinine Ratio 34.6; Calcium 7.6 mg/dL (8.5-10.1); Potassium 5.4 mmol/L (3.5-5.1)
[2022-07-06] MEDS ORDERED: SODIUM ZIRCONIUM CYCL 10 GM PAK PO ONE (06:15)
[2022-07-06] MEDS: ACCU-CHEK COMFORT CURVE STRIP VI SCH ×4 (06:15→23:57)
[2022-07-06] MEDS: InsuLIN REG 1unit/0.01ml Soln (100units/ml) SC SCH ×4 (06:21→23:57)
[2022-07-06] MEDS: cefTRIAXone 1GM/50ML D5W 50 ML IV SCH (08:14)
[2022-07-06] MEDS: AZITHROMYCIN 500MG/ 250ML 250 ML IV SCH (08:51)
[2022-07-06] MEDS: DexAMETHasone SOD PHOS 10MG/1ML VIAL INJ IV SCH (08:51)
[2022-07-06] MEDS: ENOXAPARIN SOD 40 MG/0.4 ML SYRINGE SC SCH ×2 (08:51→21:32)
[2022-07-06] MEDS: ASPirin 81 mg TAB PO SCH (08:52)
[2022-07-06] MEDS: METOPROLOL TARTRATE 25 MG TAB PO SCH ×2 (08:52→21:32)
[2022-07-06] MEDS: PANTOPRAZOLE 40 MG/10 ML VIAL INJ IV SCH (08:52)
[2022-07-06] MEDS: PROPOFOL 100 ML IV SCH (09:30)
[2022-07-06] MEDS: SODIUM CHLOR 0.9% PF (SALINE LOCK) 10ML VIAL/SYR IV SCH ×2 (09:50→21:32)
[2022-07-06] MEDS ORDERED: FUROSEMIDE 20 MG/2 ML VIAL IV ONE (11:45)
[2022-07-06] MEDS ORDERED: Jevity 1.2 Cal/Fiber 1 Liter GT SCH (14:00)
[2022-07-06] MEDS: REMDESIVIR 100mg 100 MG in SODIUM CHL 0.9% 230 ML IV SCH (15:30)
[2022-07-06] MEDS: ATORVASTATIN 20 MG TAB PO SCH (21:31)
[2022-07-06] MEDS: NOREPINEPHRINE 8 MG/250ML KIT 250 ML IV SCH (23:15)
[2022-07-07] VITALS (101 sets, daily range): BP systolic 101–147; BP diastolic 41–66
[2022-07-07 04:26] LABS: Basophils # (auto) 0 10 ^3/uL (0-0.2); Basophils % (auto) 0.2 % (0.0-2.0); Eosinophils # (auto) 0 10 ^3/uL (0-0.8); Hematocrit 35.3 % (41.0-53.0); Hemoglobin 11.6 g/dL (13.5-17.5); Lymphocytes # (auto) 0.3 10 ^3/uL (0.4-5.4); Lymphocytes % (auto) 2.9 % (10.0-50.0); Mean Corpuscular Hemoglobin 32.9 pg (28.0-32.0); Mean Corpuscular Hgb Conc. 32.9 g/dL (32.0-36.0); Monocytes # (auto) 0.5 10 ^3/uL (0-1.3); Monocytes % (auto) 5.2 % (0.0-12.0); Neutrophils # (auto) 8.8 10 ^3/uL (1.6-8.6); Neutrophils % (auto) 91.7 % (37.0-80.0); Nucleated Red Blood Cells % 0.2 %; Red Blood Cells 3.52 10^6/uL (4.5-5.90); Red Cell Distribution Width 14.6 % (11.8-14.3); White Blood Cell 9.6 10^3/uL (4.4-10.8)
[2022-07-07 04:35] LABS: Calcium 8.1 mg/dL (8.5-10.1); Potassium 4.8 mmol/L (3.5-5.1)
[2022-07-07 04:43] LABS: BUN/Creatinine Ratio 34.2
[2022-07-07] MEDS: InsuLIN REG 1unit/0.01ml Soln (100units/ml) SC SCH ×3 (06:24→17:45)
[2022-07-07] MEDS: fentaNYL Drip 2500mCg/250mlNS 250 ML IV SCH (06:25)
[2022-07-07] MEDS: ACCU-CHEK COMFORT CURVE STRIP VI SCH ×3 (06:25→17:43)
[2022-07-07] MEDS: MIDAZOLAM DRIP 50 mg/50mL 50 ML IV SCH ×2 (06:28→20:31)
[2022-07-07] MEDS: FUROSEMIDE 20 MG/2 ML VIAL IV SCH (09:00)
[2022-07-07] MEDS: DexAMETHasone SOD PHOS 10MG/1ML VIAL INJ IV SCH (09:18)
[2022-07-07] MEDS: cefTRIAXone 1GM/50ML D5W 50 ML IV SCH (09:18)
[2022-07-07] MEDS: ASPirin 81 mg TAB PO SCH (09:19)
[2022-07-07] MEDS: PANTOPRAZOLE 40 MG/10 ML VIAL INJ IV SCH (09:19)
[2022-07-07] MEDS: SODIUM CHLOR 0.9% PF (SALINE LOCK) 10ML VIAL/SYR IV SCH ×2 (09:19→22:16)
[2022-07-07] MEDS: ENOXAPARIN SOD 40 MG/0.4 ML SYRINGE SC SCH ×2 (09:20→22:16)
[2022-07-07] MEDS: METOPROLOL TARTRATE 25 MG TAB PO SCH ×2 (09:20→22:16)
[2022-07-07] MEDS: PROPOFOL 100 ML IV SCH (09:20)
[2022-07-07] MEDS: AZITHROMYCIN 500MG/ 250ML 250 ML IV SCH (10:06)
[2022-07-07] MEDS: INSULIN LANTUS (GLARGINE) 1 /0.01ml (100units/ml) SC SCH (12:59)
[2022-07-07 13:48] LABS: Hepatitis B Surface Antibody Negative (Negative)
[2022-07-07 14:19] LABS: Hepatitis A Total Antibody Negative (Negative)
[2022-07-07 14:39] LABS: Hepatitis C Antibody Negative (Negative)
[2022-07-07] MEDS: REMDESIVIR 100mg 100 MG in SODIUM CHL 0.9% 230 ML IV SCH (14:51)
[2022-07-07] MEDS: ATORVASTATIN 20 MG TAB PO SCH (22:16)
[2022-07-07] MEDS: NOREPINEPHRINE 8 MG/250ML KIT 250 ML IV SCH (22:17)
[2022-07-08] VITALS (106 sets, daily range): BP systolic 86–124; BP diastolic 42–65
[2022-07-08] MEDS: MIDAZOLAM DRIP 50 mg/50mL 50 ML IV SCH ×6 (00:10→16:14)
[2022-07-08] MEDS: PROPOFOL 100 ML IV SCH ×7 (00:30→21:26)
[2022-07-08 04:19] LABS: Basophils # (auto) 0 10 ^3/uL (0-0.2); Basophils % (auto) 0.2 % (0.0-2.0); Eosinophils # (auto) 0 10 ^3/uL (0-0.8); Hematocrit 36.3 % (41.0-53.0); Hemoglobin 12.4 g/dL (13.5-17.5); Lymphocytes # (auto) 0.3 10 ^3/uL (0.4-5.4); Lymphocytes % (auto) 3.6 % (10.0-50.0); Mean Corpuscular Hemoglobin 33.9 pg (28.0-32.0); Mean Corpuscular Volume 99.5 fL (80.0-100.0); Monocytes # (auto) 0.2 10 ^3/uL (0-1.3); Monocytes % (auto) 2.1 % (0.0-12.0); Neutrophils # (auto) 8.9 10 ^3/uL (1.6-8.6); Neutrophils % (auto) 94.1 % (37.0-80.0); Nucleated Red Blood Cells % 0.3 %; Red Blood Cells 3.65 10^6/uL (4.5-5.90); Red Cell Distribution Width 14.5 % (11.8-14.3); White Blood Cell 9.4 10^3/uL (4.4-10.8)
[2022-07-08 04:37] LABS: Albumin 2.5 g/dL (3.4-5.0); Calcium 8.1 mg/dL (8.5-10.1); Potassium 4.5 mmol/L (3.5-5.1)
[2022-07-08] MEDS: IPRATROPIUM BROM 0.5 MG/2.5ML INH SOL NEB PRN ×3 (04:39→14:43)
[2022-07-08] MEDS: ALBUTEROL SULF 2.5 MG/0.5ML(0.5%) NEB SOLN NEB PRN ×3 (04:39→14:43)
[2022-07-08 04:40] LABS: BUN/Creatinine Ratio 44.3; Bilirubin, Total 0.6 mg/dL (0.2-1.0); Total Protein 6.1 g/dL (6.4-8.2)
[2022-07-08] MEDS: fentaNYL Drip 2500mCg/250mlNS 250 ML IV SCH ×2 (04:47→09:00)
[2022-07-08] MEDS: ACCU-CHEK COMFORT CURVE STRIP VI SCH ×4 (06:30→17:19)
[2022-07-08] MEDS: InsuLIN REG 1unit/0.01ml Soln (100units/ml) SC SCH ×4 (06:36→17:20)
[2022-07-08] MEDS: INSULIN LANTUS (GLARGINE) 1 /0.01ml (100units/ml) SC SCH (06:37)
[2022-07-08] MEDS: cefTRIAXone 1GM/50ML D5W 50 ML IV SCH (08:27)
[2022-07-08] MEDS: DexAMETHasone SOD PHOS 10MG/1ML VIAL INJ IV SCH (09:11)
[2022-07-08] MEDS: SODIUM CHLOR 0.9% PF (SALINE LOCK) 10ML VIAL/SYR IV SCH ×2 (09:12→21:25)
[2022-07-08] MEDS: ENOXAPARIN SOD 40 MG/0.4 ML SYRINGE SC SCH ×2 (09:12→21:25)
[2022-07-08] MEDS: ASPirin 81 mg TAB PO SCH (09:12)
[2022-07-08] MEDS: PANTOPRAZOLE 40 MG/10 ML VIAL INJ IV SCH (09:12)
[2022-07-08] MEDS: FUROSEMIDE 20 MG/2 ML VIAL IV SCH (09:12)
[2022-07-08] MEDS: AZITHROMYCIN 500MG/ 250ML 250 ML IV SCH (09:12)
[2022-07-08] MEDS: METOPROLOL TARTRATE 25 MG TAB PO SCH ×2 (10:00→21:25)
[2022-07-08] MEDS: ATRACURIUM BESYLATE 1,000 MG in D5W 5% 150 ML IV SCH (10:04)
[2022-07-08] MEDS: REMDESIVIR 100mg 100 MG in SODIUM CHL 0.9% 230 ML IV SCH (14:43)
[2022-07-08] MEDS: ATORVASTATIN 20 MG TAB PO SCH (21:25)
[2022-07-08] MEDS: NOREPINEPHRINE 8 MG/250ML KIT 250 ML IV SCH (23:15)
[2022-07-09] VITALS (107 sets, daily range): BP systolic 86–151; BP diastolic 37–76
[2022-07-09] MEDS: ACCU-CHEK COMFORT CURVE STRIP VI SCH ×4 (00:27→18:00)
[2022-07-09] MEDS: InsuLIN REG 1unit/0.01ml Soln (100units/ml) SC SCH ×4 (00:28→17:59)
[2022-07-09] MEDS: MIDAZOLAM DRIP 50 mg/50mL 50 ML IV SCH ×4 (00:44→23:16)
[2022-07-09] MEDS: fentaNYL Drip 2500mCg/250mlNS 250 ML IV SCH ×2 (02:43→13:20)
[2022-07-09 05:04] LABS: Basophils # (auto) 0.1 10 ^3/uL (0-0.2); Eosinophils # (auto) 0 10 ^3/uL (0-0.8); Hematocrit 34.6 % (41.0-53.0); Hemoglobin 11.3 g/dL (13.5-17.5); Lymphocytes # (auto) 0.2 10 ^3/uL (0.4-5.4); Mean Corpuscular Hgb Conc. 32.5 g/dL (32.0-36.0); Mean Corpuscular Volume 101.5 fL (80.0-100.0); Monocytes # (auto) 0.2 10 ^3/uL (0-1.3); Monocytes % (auto) 2.4 % (0.0-12.0); Neutrophils # (auto) 7.4 10 ^3/uL (1.6-8.6); Neutrophils % (auto) 94.6 % (37.0-80.0); Nucleated Red Blood Cells % 0.5 %; Red Blood Cells 3.41 10^6/uL (4.5-5.90); Red Cell Distribution Width 14.5 % (11.8-14.3); White Blood Cell 7.8 10^3/uL (4.4-10.8)
[2022-07-09 05:31] LABS: BUN/Creatinine Ratio 31.3; Calcium 8.5 mg/dL (8.5-10.1)
[2022-07-09 05:56] LABS: Potassium 5.3 mmol/L (3.5-5.1)
[2022-07-09] MEDS: INSULIN LANTUS (GLARGINE) 1 /0.01ml (100units/ml) SC SCH (06:31)
[2022-07-09] MEDS: PROPOFOL 100 ML IV SCH ×4 (06:38→23:24)
[2022-07-09] MEDS: METOPROLOL TARTRATE 25 MG TAB PO SCH ×2 (09:27→21:19)
[2022-07-09] MEDS: cefTRIAXone 1GM/50ML D5W 50 ML IV SCH (09:32)
[2022-07-09] MEDS: ASPirin 81 mg TAB PO SCH (09:33)
[2022-07-09] MEDS: ENOXAPARIN SOD 40 MG/0.4 ML SYRINGE SC SCH ×2 (09:33→21:19)
[2022-07-09] MEDS: DexAMETHasone SOD PHOS 10MG/1ML VIAL INJ IV SCH (09:33)
[2022-07-09] MEDS: PANTOPRAZOLE 40 MG/10 ML VIAL INJ IV SCH (09:33)
[2022-07-09] MEDS: FUROSEMIDE 20 MG/2 ML VIAL IV SCH (09:34)
[2022-07-09] MEDS: SODIUM CHLOR 0.9% PF (SALINE LOCK) 10ML VIAL/SYR IV SCH ×2 (09:34→21:19)
[2022-07-09] MEDS: AZITHROMYCIN 500MG/ 250ML 250 ML IV SCH (11:01)
[2022-07-09] MEDS ORDERED: ALBUTEROL SULF 2.5 MG/0.5ML(0.5%) NEB SOLN NEB ONE (16:45)
[2022-07-09] MEDS ORDERED: SODIUM ZIRCONIUM CYCL 10 GM PAK PO ONE (17:30)
[2022-07-09] MEDS: ATORVASTATIN 20 MG TAB PO SCH (21:19)
[2022-07-09] MEDS: NOREPINEPHRINE 8 MG/250ML KIT 250 ML IV SCH (23:15)
[2022-07-10] VITALS (110 sets, daily range): BP systolic 89–120; BP diastolic 36–56
[2022-07-10] MEDS: InsuLIN REG 1unit/0.01ml Soln (100units/ml) SC SCH ×5 (00:13→21:56)
[2022-07-10] MEDS: ACCU-CHEK COMFORT CURVE STRIP VI SCH ×4 (00:13→20:00)
[2022-07-10] MEDS: fentaNYL Drip 2500mCg/250mlNS 250 ML IV SCH (00:15)
[2022-07-10] MEDS: PROPOFOL 100 ML IV SCH ×4 (02:39→22:21)
[2022-07-10 04:02] LABS: Hematocrit 33.9 % (41.0-53.0); Mean Corpuscular Hemoglobin 33.1 pg (28.0-32.0); Mean Corpuscular Hgb Conc. 32.4 g/dL (32.0-36.0); Mean Corpuscular Volume 102.1 fL (80.0-100.0); Red Blood Cells 3.33 10^6/uL (4.5-5.90); Red Cell Distribution Width 14.9 % (11.8-14.3)
[2022-07-10 04:04] LABS: Band Neutrophils % (manual) 0; Basophils % (manual) 0 (0.0-2.0); Blast Cells 0; Eosinophils % (manual) 0 (0-7); Metamyelocytes % 0; Myelocytes % 0; Promyelocytes % 0; Reactive Lymphocytes 0
[2022-07-10 04:23] LABS: BUN/Creatinine Ratio 31.5; Calcium 8.2 mg/dL (8.5-10.1)
[2022-07-10 04:25] LABS: Potassium 5.7 mmol/L (3.5-5.1)
[2022-07-10] MEDS: ATRACURIUM BESYLATE 1,000 MG in D5W 5% 150 ML IV SCH ×2 (05:43→09:30)
[2022-07-10] MEDS: MIDAZOLAM DRIP 50 mg/50mL 50 ML IV SCH ×3 (05:50→22:33)
[2022-07-10] MEDS: INSULIN LANTUS (GLARGINE) 1 /0.01ml (100units/ml) SC SCH ×2 (06:39→23:18)
[2022-07-10] MEDS ORDERED: ALBUTEROL SULF 2.5 MG/0.5ML(0.5%) NEB SOLN NEB ONE (07:45)
[2022-07-10] MEDS ORDERED: DEXTROSE (50%) 50ML SYRG IV ONE (07:45)
[2022-07-10] MEDS ORDERED: SODIUM ZIRCONIUM CYCL 10 GM PAK PO ONE (07:45)
[2022-07-10] MEDS ORDERED: InsuLIN REG 1unit/0.01ml Soln (100units/ml) IV ONE (07:45)
[2022-07-10] MEDS ORDERED: SODIUM ZIRCONIUM CYCL 10 GM PAK ONE (07:55)
[2022-07-10 07:58] LABS: Lymphocytes % (manual) 3 (10.0-50.0); Monocytes % (manual) 3 (0-12)
[2022-07-10] MEDS: cefTRIAXone 1GM/50ML D5W 50 ML IV SCH (09:38)
[2022-07-10] MEDS: ENOXAPARIN SOD 40 MG/0.4 ML SYRINGE SC SCH ×2 (10:22→22:54)
[2022-07-10] MEDS: PANTOPRAZOLE 40 MG/10 ML VIAL INJ IV SCH (10:22)
[2022-07-10] MEDS: FUROSEMIDE 20 MG/2 ML VIAL IV SCH (10:23)
[2022-07-10] MEDS: METOPROLOL TARTRATE 25 MG TAB PO SCH ×2 (10:24→22:00)
[2022-07-10] MEDS: ASPirin 81 mg TAB PO SCH (10:24)
[2022-07-10] MEDS: SODIUM CHLOR 0.9% PF (SALINE LOCK) 10ML VIAL/SYR IV SCH ×2 (10:25→22:53)
[2022-07-10] MEDS: NOREPINEPHRINE 8 MG/250ML KIT 250 ML IV SCH (11:35)
[2022-07-10] MEDS: DexAMETHasone SOD PHOS 10MG/1ML VIAL INJ IV SCH (11:35)
[2022-07-10] MEDS ORDERED: DEXTROSE (50%) 50ML SYRG IV PRN (12:45)
[2022-07-10] MEDS: BUMETANIDE 2.5mg/10ml (0.25 mg/ml) INJ IV SCH ×2 (14:52→19:00)
[2022-07-10] MEDS: DOPamine 1600MCG/ML D5W 250 ML IV SCH (14:53)
[2022-07-10] MEDS: MEROPENEM 1GM IVPB 100 ML IV SCH ×2 (17:18→22:54)
[2022-07-10 18:17] LABS: Creatinine, Urine 88 mg/dL (30.0-125.0); Protein, Urine 48.8 mg/dL (0.0-11.9); Sodium Urine 31 mmol/L (40-220)
[2022-07-10] MEDS: ATORVASTATIN 20 MG TAB PO SCH (22:53)
[2022-07-11] VITALS (100 sets, daily range): BP systolic 94–129; BP diastolic 39–63
[2022-07-11] MEDS: InsuLIN REG 1unit/0.01ml Soln (100units/ml) SC SCH ×7 (00:17→23:30)
[2022-07-11] MEDS: ACCU-CHEK COMFORT CURVE STRIP VI SCH ×7 (00:20→23:29)
[2022-07-11] MEDS: fentaNYL Drip 2500mCg/250mlNS 250 ML IV SCH ×3 (00:32→20:23)
[2022-07-11] MEDS: PROPOFOL 100 ML IV SCH ×4 (01:43→20:58)
[2022-07-11] MEDS: MIDAZOLAM DRIP 50 mg/50mL 50 ML IV SCH ×3 (02:20→22:20)
[2022-07-11 04:26] LABS: Basophils # (auto) 0 10 ^3/uL (0-0.2); Hemoglobin 11.6 g/dL (13.5-17.5); Lymphocytes # (auto) 0.1 10 ^3/uL (0.4-5.4); Mean Corpuscular Hgb Conc. 33.6 g/dL (32.0-36.0); Monocytes # (auto) 0.4 10 ^3/uL (0-1.3); Nucleated Red Blood Cells % 0.2 %
[2022-07-11 04:27] LABS: Eosinophils # (auto) 0 10 ^3/uL (0-0.8); Eosinophils % (auto) 0.1 % (0.0-7.0); Hematocrit 34.5 % (41.0-53.0); Mean Corpuscular Volume 101.3 fL (80.0-100.0); Monocytes % (auto) 3.7 % (0.0-12.0); Neutrophils # (auto) 9.7 10 ^3/uL (1.6-8.6); Neutrophils % (auto) 95.2 % (37.0-80.0); Red Blood Cells 3.41 10^6/uL (4.5-5.90); Red Cell Distribution Width 14.7 % (11.8-14.3); White Blood Cell 10.2 10^3/uL (4.4-10.8)
[2022-07-11 04:49] LABS: BUN/Creatinine Ratio 34.4; Calcium 8.3 mg/dL (8.5-10.1)
[2022-07-11 04:56] LABS: Potassium 5.6 mmol/L (3.5-5.1)
[2022-07-11] MEDS: BUMETANIDE 2.5mg/10ml (0.25 mg/ml) INJ IV SCH ×2 (05:21→18:21)
[2022-07-11] MEDS ORDERED: SODIUM ZIRCONIUM CYCL 10 GM PAK PO ONE (06:30)
[2022-07-11] MEDS: ATRACURIUM BESYLATE 1,000 MG in D5W 5% 150 ML IV SCH (09:30)
[2022-07-11] MEDS ORDERED: SODIUM BICARBONATE 8.4 % INJ 50ML VIAL IV ONE (09:45)
[2022-07-11] MEDS ORDERED: InsuLIN REG 1unit/0.01ml Soln (100units/ml) IV ONE (09:45)
[2022-07-11] MEDS ORDERED: DEXTROSE (50%) 50ML SYRG IV ONE (09:45)
[2022-07-11] MEDS ORDERED: ALBUTEROL SULF 2.5 MG/0.5ML(0.5%) NEB SOLN NEB ONE (09:45)
[2022-07-11] MEDS ORDERED: CALCIUM GLUC 1,000mg/50ml-NS 50 ML IV ONE (09:45)
[2022-07-11] MEDS: METOPROLOL TARTRATE 25 MG TAB PO SCH ×2 (10:00→22:00)
[2022-07-11] MEDS: PANTOPRAZOLE 40 MG/10 ML VIAL INJ IV SCH (10:33)
[2022-07-11] MEDS: DexAMETHasone SOD PHOS 10MG/1ML VIAL INJ IV SCH (10:33)
[2022-07-11] MEDS: ASPirin 81 mg TAB PO SCH (10:33)
[2022-07-11] MEDS: ENOXAPARIN SOD 40 MG/0.4 ML SYRINGE SC SCH ×2 (10:33→22:38)
[2022-07-11] MEDS: SODIUM CHLOR 0.9% PF (SALINE LOCK) 10ML VIAL/SYR IV SCH ×2 (10:34→22:38)
[2022-07-11] MEDS: MEROPENEM 1GM IVPB 100 ML IV SCH ×2 (10:34→22:38)
[2022-07-11] MEDS: INSULIN LANTUS (GLARGINE) 1 /0.01ml (100units/ml) SC SCH ×2 (12:00→22:53)
[2022-07-11] MEDS: DOPamine 1600MCG/ML D5W 250 ML IV SCH ×2 (12:30→20:22)
[2022-07-11] MEDS: LINEZOLID 600MG/300ML 300 ML IV SCH ×2 (17:10→22:37)
[2022-07-11] MEDS: ATORVASTATIN 20 MG TAB PO SCH (22:37)
[2022-07-11] MEDS: NOREPINEPHRINE 8 MG/250ML KIT 250 ML IV SCH (23:15)
[2022-07-12] VITALS (100 sets, daily range): BP systolic 81–215; BP diastolic 39–76
[2022-07-12] MEDS: PROPOFOL 100 ML IV SCH ×9 (00:15→22:31)
[2022-07-12] MEDS: MIDAZOLAM DRIP 50 mg/50mL 50 ML IV SCH ×5 (03:30→22:31)
[2022-07-12] MEDS: ACCU-CHEK COMFORT CURVE STRIP VI SCH ×5 (04:26→20:26)
[2022-07-12 04:27] LABS: Basophils # (auto) 0 10 ^3/uL (0-0.2); Basophils % (auto) 0.2 % (0.0-2.0); Eosinophils # (auto) 0 10 ^3/uL (0-0.8); Hematocrit 33.1 % (41.0-53.0); Hemoglobin 10.8 g/dL (13.5-17.5); Lymphocytes # (auto) 0.1 10 ^3/uL (0.4-5.4); Mean Corpuscular Hemoglobin 32.8 pg (28.0-32.0); Mean Corpuscular Hgb Conc. 32.5 g/dL (32.0-36.0); Mean Corpuscular Volume 100.8 fL (80.0-100.0); Monocytes # (auto) 0.3 10 ^3/uL (0-1.3); Neutrophils # (auto) 7.2 10 ^3/uL (1.6-8.6); Neutrophils % (auto) 94.8 % (37.0-80.0); Nucleated Red Blood Cells % 0.3 %; Red Blood Cells 3.28 10^6/uL (4.5-5.90); Red Cell Distribution Width 14.7 % (11.8-14.3); White Blood Cell 7.5 10^3/uL (4.4-10.8)
[2022-07-12] MEDS: fentaNYL Drip 2500mCg/250mlNS 250 ML IV SCH ×2 (04:32→20:33)
[2022-07-12] MEDS: InsuLIN REG 1unit/0.01ml Soln (100units/ml) SC SCH ×5 (04:46→20:27)
[2022-07-12 04:47] LABS: Calcium 8.4 mg/dL (8.5-10.1); Potassium 5.1 mmol/L (3.5-5.1)
[2022-07-12] MEDS: BUMETANIDE 2.5mg/10ml (0.25 mg/ml) INJ IV SCH ×2 (05:41→18:28)
[2022-07-12] MEDS: MEROPENEM 1GM IVPB 100 ML IV SCH ×2 (09:18→22:30)
[2022-07-12] MEDS: LINEZOLID 600MG/300ML 300 ML IV SCH ×2 (09:18→22:29)
[2022-07-12] MEDS: ENOXAPARIN SOD 40 MG/0.4 ML SYRINGE SC SCH ×2 (09:19→22:30)
[2022-07-12] MEDS: METOPROLOL TARTRATE 25 MG TAB PO SCH ×2 (09:19→22:00)
[2022-07-12] MEDS: INSULIN LANTUS (GLARGINE) 1 /0.01ml (100units/ml) SC SCH ×2 (09:19→22:46)
[2022-07-12] MEDS: DexAMETHasone SOD PHOS 10MG/1ML VIAL INJ IV SCH (09:20)
[2022-07-12] MEDS: PANTOPRAZOLE 40 MG/10 ML VIAL INJ IV SCH (09:20)
[2022-07-12] MEDS: SODIUM CHLOR 0.9% PF (SALINE LOCK) 10ML VIAL/SYR IV SCH ×2 (09:20→22:30)
[2022-07-12] MEDS: ATRACURIUM BESYLATE 1,000 MG in D5W 5% 150 ML IV SCH (09:21)
[2022-07-12] MEDS: SOD CHL 0.45% 1,000 ML IV SCH ×2 (09:22→20:48)
[2022-07-12] MEDS: ASPirin 81 mg TAB PO SCH (09:23)
[2022-07-12] MEDS: ATORVASTATIN 20 MG TAB PO SCH (22:29)
[2022-07-12] MEDS: NOREPINEPHRINE 8 MG/250ML KIT 250 ML IV SCH (23:15)
[2022-07-12] MEDS: IPRATROPIUM BROM 0.5 MG/2.5ML INH SOL NEB PRN (23:57)
[2022-07-12] MEDS: ALBUTEROL SULF 2.5 MG/0.5ML(0.5%) NEB SOLN NEB PRN (23:57)
[2022-07-13] VITALS (102 sets, daily range): BP systolic 81–170; BP diastolic 43–71
[2022-07-13] MEDS: ACCU-CHEK COMFORT CURVE STRIP VI SCH ×6 (00:14→20:29)
[2022-07-13] MEDS: InsuLIN REG 1unit/0.01ml Soln (100units/ml) SC SCH ×6 (00:16→20:30)
[2022-07-13] MEDS: MIDAZOLAM DRIP 50 mg/50mL 50 ML IV SCH ×7 (02:02→21:12)
[2022-07-13] MEDS: PROPOFOL 100 ML IV SCH ×7 (02:02→21:29)
[2022-07-13] MEDS: fentaNYL Drip 2500mCg/250mlNS 250 ML IV SCH ×3 (02:59→18:55)
[2022-07-13] MEDS: IPRATROPIUM BROM 0.5 MG/2.5ML INH SOL NEB PRN ×3 (03:52→11:34)
[2022-07-13] MEDS: ALBUTEROL SULF 2.5 MG/0.5ML(0.5%) NEB SOLN NEB PRN ×2 (03:52→11:34)
[2022-07-13 03:55] LABS: Basophils # (auto) 0 10 ^3/uL (0-0.2); Basophils % (auto) 0.1 % (0.0-2.0); Eosinophils # (auto) 0 10 ^3/uL (0-0.8); Eosinophils % (auto) 0.1 % (0.0-7.0); Hematocrit 32.9 % (41.0-53.0); Hemoglobin 10.7 g/dL (13.5-17.5); Lymphocytes # (auto) 0.2 10 ^3/uL (0.4-5.4); Lymphocytes % (auto) 1.6 % (10.0-50.0); Mean Corpuscular Hemoglobin 33.1 pg (28.0-32.0); Mean Corpuscular Hgb Conc. 32.6 g/dL (32.0-36.0); Mean Corpuscular Volume 101.5 fL (80.0-100.0); Monocytes # (auto) 0.4 10 ^3/uL (0-1.3); Monocytes % (auto) 4.4 % (0.0-12.0); Neutrophils # (auto) 8.8 10 ^3/uL (1.6-8.6); Neutrophils % (auto) 93.8 % (37.0-80.0); Red Blood Cells 3.24 10^6/uL (4.5-5.90); White Blood Cell 9.4 10^3/uL (4.4-10.8)
[2022-07-13 04:04] LABS: Calcium 7.9 mg/dL (8.5-10.1); Potassium 5.1 mmol/L (3.5-5.1)
[2022-07-13 04:11] LABS: BUN/Creatinine Ratio 49.5
[2022-07-13] MEDS: BUMETANIDE 2.5mg/10ml (0.25 mg/ml) INJ IV SCH (05:29)
[2022-07-13] MEDS: DOPamine 1600MCG/ML D5W 250 ML IV SCH (06:02)
[2022-07-13] MEDS: ATRACURIUM BESYLATE 1,000 MG in D5W 5% 150 ML IV SCH (09:30)
[2022-07-13] MEDS: PANTOPRAZOLE 40 MG/10 ML VIAL INJ IV SCH (10:17)
[2022-07-13] MEDS: DexAMETHasone SOD PHOS 10MG/1ML VIAL INJ IV SCH (10:17)
[2022-07-13] MEDS: LINEZOLID 600MG/300ML 300 ML IV SCH ×2 (10:18→22:23)
[2022-07-13] MEDS: ASPirin 81 mg TAB PO SCH (10:19)
[2022-07-13] MEDS: METOPROLOL TARTRATE 25 MG TAB PO SCH ×2 (10:19→22:41)
[2022-07-13] MEDS: SODIUM CHLOR 0.9% PF (SALINE LOCK) 10ML VIAL/SYR IV SCH ×2 (10:20→22:24)
[2022-07-13] MEDS: INSULIN LANTUS (GLARGINE) 1 /0.01ml (100units/ml) SC SCH ×2 (11:33→22:25)
[2022-07-13] MEDS: MEROPENEM 1GM IVPB 100 ML IV SCH ×2 (12:03→22:24)
[2022-07-13] MEDS: ENOXAPARIN SOD 40 MG/0.4 ML SYRINGE SC SCH ×2 (12:03→22:23)
[2022-07-13] MEDS: NOREPINEPHRINE 8 MG/250ML KIT 250 ML IV SCH (16:02)
[2022-07-13] MEDS: FUROSEMIDE 40 MG/4 ML VIAL IV SCH (17:35)
[2022-07-13] MEDS: Nepro With Carb Steady 1 Liter Bottle GT SCH (18:00)
[2022-07-13] MEDS: ATORVASTATIN 20 MG TAB PO SCH (22:41)
[2022-07-14] VITALS (104 sets, daily range): BP systolic 83–140; BP diastolic 42–69
[2022-07-14] MEDS: ACCU-CHEK COMFORT CURVE STRIP VI SCH ×6 (00:15→20:20)
[2022-07-14] MEDS: InsuLIN REG 1unit/0.01ml Soln (100units/ml) SC SCH ×6 (00:18→20:21)
[2022-07-14] MEDS: MIDAZOLAM DRIP 50 mg/50mL 50 ML IV SCH ×4 (01:07→18:25)
[2022-07-14] MEDS: PROPOFOL 100 ML IV SCH ×7 (01:51→23:01)
[2022-07-14] MEDS: fentaNYL Drip 2500mCg/250mlNS 250 ML IV SCH ×3 (03:24→23:06)
[2022-07-14 05:22] LABS: Hemoglobin 10.4 g/dL (13.5-17.5)
[2022-07-14 05:25] LABS: Hematocrit 30.3 % (41.0-53.0); Mean Corpuscular Hemoglobin 35.5 pg (28.0-32.0); Mean Corpuscular Hgb Conc. 34.2 g/dL (32.0-36.0); Mean Corpuscular Volume 103.8 fL (80.0-100.0); Red Blood Cells 2.92 10^6/uL (4.5-5.90)
[2022-07-14 05:34] LABS: BUN/Creatinine Ratio 60.1; Calcium 6.7 mg/dL (8.5-10.1); Potassium 4.6 mmol/L (3.5-5.1)
[2022-07-14 05:39] LABS: Basophils % (manual) 0 (0.0-2.0); Blast Cells 0; Eosinophils % (manual) 0 (0-7); Metamyelocytes % 0; Promyelocytes % 0; Reactive Lymphocytes 0
[2022-07-14] MEDS: FUROSEMIDE 40 MG/4 ML VIAL IV SCH ×2 (06:14→18:33)
[2022-07-14 07:56] LABS: Band Neutrophils % (manual) 9; Lymphocytes % (manual) 2 (10.0-50.0); Monocytes % (manual) 1 (0-12); Myelocytes % 2
[2022-07-14] MEDS: LINEZOLID 600MG/300ML 300 ML IV SCH (08:36)
[2022-07-14] MEDS: METOPROLOL TARTRATE 25 MG TAB PO SCH ×2 (08:36→22:02)
[2022-07-14] MEDS: ASPirin 81 mg TAB PO SCH (08:36)
[2022-07-14] MEDS: DexAMETHasone SOD PHOS 10MG/1ML VIAL INJ IV SCH (08:37)
[2022-07-14] MEDS: ENOXAPARIN SOD 40 MG/0.4 ML SYRINGE SC SCH ×2 (08:40→22:02)
[2022-07-14] MEDS: PANTOPRAZOLE 40 MG/10 ML VIAL INJ IV SCH (08:40)
[2022-07-14] MEDS: SODIUM CHLOR 0.9% PF (SALINE LOCK) 10ML VIAL/SYR IV SCH ×2 (08:41→22:26)
[2022-07-14] MEDS: ATRACURIUM BESYLATE 1,000 MG in D5W 5% 150 ML IV SCH (09:30)
[2022-07-14] MEDS: MEROPENEM 1GM IVPB 100 ML IV SCH ×2 (11:11→22:26)
[2022-07-14] MEDS: INSULIN LANTUS (GLARGINE) 1 /0.01ml (100units/ml) SC SCH ×2 (11:11→22:19)
[2022-07-14] MEDS ORDERED: INSULIN LANTUS (GLARGINE) 1 /0.01ml (100units/ml) SC ONE (11:15)
[2022-07-14] MEDS: ATORVASTATIN 20 MG TAB PO SCH (22:03)
[2022-07-14] MEDS: NOREPINEPHRINE 8 MG/250ML KIT 250 ML IV SCH (23:15)
[2022-07-15] VITALS (108 sets, daily range): BP systolic 83–147; BP diastolic 35–78
[2022-07-15] MEDS: ACCU-CHEK COMFORT CURVE STRIP VI SCH ×6 (00:11→23:33)
[2022-07-15] MEDS: InsuLIN REG 1unit/0.01ml Soln (100units/ml) SC SCH ×6 (00:13→23:35)
[2022-07-15] MEDS: PROPOFOL 100 ML IV SCH ×5 (02:32→20:36)
[2022-07-15 04:53] LABS: Basophils # (auto) 0 10 ^3/uL (0-0.2); Eosinophils # (auto) 0.1 10 ^3/uL (0-0.8); Hemoglobin 9.9 g/dL (13.5-17.5); Lymphocytes # (auto) 0.2 10 ^3/uL (0.4-5.4); Red Cell Distribution Width 15.1 % (11.8-14.3)
[2022-07-15 04:55] LABS: Eosinophils % (auto) 1.3 % (0.0-7.0); Hematocrit 28.5 % (41.0-53.0); Lymphocytes % (auto) 2.2 % (10.0-50.0); Mean Corpuscular Hemoglobin 35.5 pg (28.0-32.0); Mean Corpuscular Hgb Conc. 34.9 g/dL (32.0-36.0); Mean Corpuscular Volume 101.8 fL (80.0-100.0); Monocytes # (auto) 0.3 10 ^3/uL (0-1.3); Monocytes % (auto) 3.6 % (0.0-12.0); Neutrophils # (auto) 7.4 10 ^3/uL (1.6-8.6); Neutrophils % (auto) 92.9 % (37.0-80.0); Nucleated Red Blood Cells % 0.1 %
[2022-07-15 05:11] LABS: Calcium 7.6 mg/dL (8.5-10.1); Potassium 4.5 mmol/L (3.5-5.1)
[2022-07-15 05:44] LABS: BUN/Creatinine Ratio 67.3
[2022-07-15] MEDS: FUROSEMIDE 40 MG/4 ML VIAL IV SCH ×2 (06:17→18:49)
[2022-07-15] MEDS: fentaNYL Drip 2500mCg/250mlNS 250 ML IV SCH ×2 (08:32→17:53)
[2022-07-15] MEDS: MIDAZOLAM DRIP 50 mg/50mL 50 ML IV SCH ×5 (09:17→21:38)
[2022-07-15] MEDS: ATRACURIUM BESYLATE 1,000 MG in D5W 5% 150 ML IV SCH (09:30)
[2022-07-15] MEDS: METOPROLOL TARTRATE 25 MG TAB PO SCH ×2 (10:30→21:33)
[2022-07-15] MEDS: MEROPENEM 1GM IVPB 100 ML IV SCH ×2 (10:38→21:32)
[2022-07-15] MEDS: PANTOPRAZOLE 40 MG/10 ML VIAL INJ IV SCH (10:38)
[2022-07-15] MEDS: ENOXAPARIN SOD 40 MG/0.4 ML SYRINGE SC SCH ×2 (10:39→21:35)
[2022-07-15] MEDS: SODIUM CHLOR 0.9% PF (SALINE LOCK) 10ML VIAL/SYR IV SCH ×2 (10:39→21:32)
[2022-07-15] MEDS: ASPirin 81 mg TAB PO SCH (10:39)
[2022-07-15] MEDS: INSULIN LANTUS (GLARGINE) 1 /0.01ml (100units/ml) SC SCH ×2 (11:25→21:34)
[2022-07-15] MEDS ORDERED: DEXTROSE (50%) 50ML SYRG IV PRN (12:30)
[2022-07-15 13:25] LABS: Urine Bacteria NONE SEEN /hpf (None Seen); Urine Blood 3+ /uL (Negative); Urine WBC 930 /hpf (0 - 3); Urine WBC Clumps PRESENT /hpf (None Seen)
[2022-07-15] MEDS: ATORVASTATIN 20 MG TAB PO SCH (21:33)
[2022-07-15] MEDS: NOREPINEPHRINE 8 MG/250ML KIT 250 ML IV SCH (23:15)
[2022-07-16] VITALS (108 sets, daily range): BP systolic 116–156; BP diastolic 36–70
[2022-07-16] MEDS: MIDAZOLAM DRIP 50 mg/50mL 50 ML IV SCH ×5 (02:41→22:49)
[2022-07-16] MEDS: fentaNYL Drip 2500mCg/250mlNS 250 ML IV SCH ×3 (02:50→22:51)
[2022-07-16] MEDS: PROPOFOL 100 ML IV SCH ×4 (02:51→17:46)
[2022-07-16 04:19] LABS: Calcium 8.7 mg/dL (8.5-10.1); Potassium 4.3 mmol/L (3.5-5.1)
[2022-07-16 04:21] LABS: BUN/Creatinine Ratio 76.6
[2022-07-16 04:28] LABS: Basophils # (auto) 0 10 ^3/uL (0-0.2); Basophils % (auto) 0.5 % (0.0-2.0); Eosinophils # (auto) 0.2 10 ^3/uL (0-0.8); Eosinophils % (auto) 1.8 % (0.0-7.0); Hematocrit 31.6 % (41.0-53.0); Hemoglobin 10.5 g/dL (13.5-17.5); Lymphocytes # (auto) 0.1 10 ^3/uL (0.4-5.4); Lymphocytes % (auto) 1.7 % (10.0-50.0); Mean Corpuscular Hgb Conc. 33.3 g/dL (32.0-36.0); Monocytes # (auto) 0.3 10 ^3/uL (0-1.3); Monocytes % (auto) 3.5 % (0.0-12.0); Neutrophils # (auto) 8.1 10 ^3/uL (1.6-8.6); Neutrophils % (auto) 92.5 % (37.0-80.0); White Blood Cell 8.7 10^3/uL (4.4-10.8)
[2022-07-16] MEDS: InsuLIN REG 1unit/0.01ml Soln (100units/ml) SC SCH ×3 (05:39→18:08)
[2022-07-16] MEDS: ACCU-CHEK COMFORT CURVE STRIP VI SCH ×3 (05:39→18:07)
[2022-07-16] MEDS: FUROSEMIDE 40 MG/4 ML VIAL IV SCH ×2 (05:41→18:06)
[2022-07-16] MEDS: MEROPENEM 1GM IVPB 100 ML IV SCH ×3 (05:41→22:06)
[2022-07-16] MEDS: ATRACURIUM BESYLATE 1,000 MG in D5W 5% 150 ML IV SCH (09:30)
[2022-07-16] MEDS: PANTOPRAZOLE 40 MG/10 ML VIAL INJ IV SCH (09:45)
[2022-07-16] MEDS: ASPirin 81 mg TAB PO SCH (09:46)
[2022-07-16] MEDS: SODIUM CHLOR 0.9% PF (SALINE LOCK) 10ML VIAL/SYR IV SCH ×2 (09:46→22:06)
[2022-07-16] MEDS: ENOXAPARIN SOD 40 MG/0.4 ML SYRINGE SC SCH ×2 (09:47→22:00)
[2022-07-16] MEDS: METOPROLOL TARTRATE 25 MG TAB PO SCH ×3 (09:49→23:25)
[2022-07-16] MEDS: INSULIN LANTUS (GLARGINE) 1 /0.01ml (100units/ml) SC SCH ×2 (10:28→22:04)
[2022-07-16] MEDS: ATORVASTATIN 20 MG TAB PO SCH (22:05)
[2022-07-16] MEDS: NOREPINEPHRINE 8 MG/250ML KIT 250 ML IV SCH (23:15)
[2022-07-17] VITALS (104 sets, daily range): BP systolic 117–155; BP diastolic 53–72
[2022-07-17] MEDS: PROPOFOL 100 ML IV SCH ×2 (00:48→06:05)
[2022-07-17] MEDS: InsuLIN REG 1unit/0.01ml Soln (100units/ml) SC SCH ×5 (00:52→23:41)
[2022-07-17] MEDS: ACCU-CHEK COMFORT CURVE STRIP VI SCH ×5 (00:53→23:39)
[2022-07-17] MEDS: FUROSEMIDE 40 MG/4 ML VIAL IV SCH ×2 (06:02→18:17)
[2022-07-17] MEDS: MEROPENEM 1GM IVPB 100 ML IV SCH ×3 (06:04→21:32)
[2022-07-17] MEDS: ATRACURIUM BESYLATE 1,000 MG in D5W 5% 150 ML IV SCH (09:30)
[2022-07-17] MEDS: PANTOPRAZOLE 40 MG/10 ML VIAL INJ IV SCH (09:57)
[2022-07-17] MEDS: ASPirin 81 mg TAB PO SCH (09:57)
[2022-07-17] MEDS: FREE WATER GT SCH ×4 (09:58→21:32)
[2022-07-17] MEDS: SODIUM CHLOR 0.9% PF (SALINE LOCK) 10ML VIAL/SYR IV SCH ×2 (09:58→21:32)
[2022-07-17] MEDS: ENOXAPARIN SOD 40 MG/0.4 ML SYRINGE SC SCH ×2 (09:59→21:33)
[2022-07-17] MEDS: INSULIN LANTUS (GLARGINE) 1 /0.01ml (100units/ml) SC SCH ×2 (10:10→21:34)
[2022-07-17] MEDS: MIDAZOLAM DRIP 50 mg/50mL 50 ML IV SCH (12:47)
[2022-07-17] MEDS: fentaNYL Drip 2500mCg/250mlNS 250 ML IV SCH (12:48)
[2022-07-17] MEDS: ATORVASTATIN 20 MG TAB PO SCH (21:32)
[2022-07-17] MEDS: METOPROLOL TARTRATE 25 MG TAB PO SCH (21:33)
[2022-07-18] VITALS (100 sets, daily range): BP systolic 123–185; BP diastolic 60–84
[2022-07-18] MEDS: MIDAZOLAM DRIP 50 mg/50mL 50 ML IV SCH ×2 (00:33→14:12)
[2022-07-18] MEDS: FREE WATER GT SCH ×6 (02:02→22:00)
[2022-07-18] MEDS: fentaNYL Drip 2500mCg/250mlNS 250 ML IV SCH ×2 (02:11→15:28)
[2022-07-18 04:24] LABS: BUN/Creatinine Ratio 63.5; Calcium 10.2 mg/dL (8.5-10.1); Potassium 4.3 mmol/L (3.5-5.1)
[2022-07-18] MEDS: ACCU-CHEK COMFORT CURVE STRIP VI SCH ×3 (05:35→17:20)
[2022-07-18] MEDS: InsuLIN REG 1unit/0.01ml Soln (100units/ml) SC SCH ×3 (05:35→17:19)
[2022-07-18] MEDS: FUROSEMIDE 40 MG/4 ML VIAL IV SCH ×3 (05:35→11:43)
[2022-07-18] MEDS: MEROPENEM 1GM IVPB 100 ML IV SCH ×3 (05:36→21:55)
[2022-07-18] MEDS: hydrALAZINE HCL 20 MG/ML VL IV PRN ×2 (06:19→15:27)
[2022-07-18] MEDS: PANTOPRAZOLE 40 MG/10 ML VIAL INJ IV SCH (08:47)
[2022-07-18] MEDS: ENOXAPARIN SOD 40 MG/0.4 ML SYRINGE SC SCH ×2 (08:48→21:55)
[2022-07-18] MEDS: ASPirin 81 mg TAB PO SCH (08:49)
[2022-07-18] MEDS: INSULIN LANTUS (GLARGINE) 1 /0.01ml (100units/ml) SC SCH ×2 (08:49→22:20)
[2022-07-18] MEDS: SODIUM CHLOR 0.9% PF (SALINE LOCK) 10ML VIAL/SYR IV SCH ×2 (08:50→21:55)
[2022-07-18] MEDS: METOPROLOL TARTRATE 25 MG TAB PO SCH ×2 (08:50→21:55)
[2022-07-18] MEDS: D5W 5% 1,000 ML IV SCH ×2 (11:30→19:15)
[2022-07-18] MEDS: ACETAMINOPHEN 500 MG TAB PO PRN (16:15)
[2022-07-18] MEDS: ATORVASTATIN 20 MG TAB PO SCH (21:54)
[2022-07-18] MEDS: ALBUTEROL SULF 2.5 MG/0.5ML(0.5%) NEB SOLN NEB PRN (22:39)
[2022-07-18] MEDS: IPRATROPIUM BROM 0.5 MG/2.5ML INH SOL NEB PRN (22:39)
[2022-07-19] VITALS (102 sets, daily range): BP systolic 101–158; BP diastolic 46–74
[2022-07-19] MEDS: ACCU-CHEK COMFORT CURVE STRIP VI SCH ×4 (00:17→17:41)
[2022-07-19] MEDS: InsuLIN REG 1unit/0.01ml Soln (100units/ml) SC SCH ×4 (00:18→17:41)
[2022-07-19] MEDS: MIDAZOLAM DRIP 50 mg/50mL 50 ML IV SCH ×4 (00:21→17:42)
[2022-07-19] MEDS: FREE WATER GT SCH ×6 (02:00→21:16)
[2022-07-19] MEDS: fentaNYL Drip 2500mCg/250mlNS 250 ML IV SCH ×2 (02:40→11:43)
[2022-07-19 04:28] LABS: Eosinophils # (auto) 0.1 10 ^3/uL (0-0.8); Hemoglobin 9.4 g/dL (13.5-17.5); Lymphocytes # (auto) 0.2 10 ^3/uL (0.4-5.4); Monocytes # (auto) 0.2 10 ^3/uL (0-1.3); Nucleated Red Blood Cells % 0.1 %
[2022-07-19 04:31] LABS: Basophils # (auto) 0.1 10 ^3/uL (0-0.2); Basophils % (auto) 0.9 % (0.0-2.0); Eosinophils % (auto) 1.7 % (0.0-7.0); Hematocrit 29.1 % (41.0-53.0); Lymphocytes % (auto) 2.9 % (10.0-50.0); Mean Corpuscular Hemoglobin 32.9 pg (28.0-32.0); Mean Corpuscular Hgb Conc. 32.3 g/dL (32.0-36.0); Mean Corpuscular Volume 101.8 fL (80.0-100.0); Monocytes % (auto) 2.9 % (0.0-12.0); Neutrophils # (auto) 6.8 10 ^3/uL (1.6-8.6); Neutrophils % (auto) 91.6 % (37.0-80.0); Red Blood Cells 2.86 10^6/uL (4.5-5.90); Red Cell Distribution Width 15.1 % (11.8-14.3); White Blood Cell 7.5 10^3/uL (4.4-10.8)
[2022-07-19 04:45] LABS: Calcium 9.3 mg/dL (8.5-10.1); Potassium 3.9 mmol/L (3.5-5.1)
[2022-07-19] MEDS: D5W 5% 1,000 ML IV SCH ×3 (05:56→15:11)
[2022-07-19] MEDS: MEROPENEM 1GM IVPB 100 ML IV SCH ×3 (05:57→21:16)
[2022-07-19] MEDS: FUROSEMIDE 40 MG/4 ML VIAL IV SCH (09:25)
[2022-07-19] MEDS: PANTOPRAZOLE 40 MG/10 ML VIAL INJ IV SCH (09:25)
[2022-07-19] MEDS: SODIUM CHLOR 0.9% PF (SALINE LOCK) 10ML VIAL/SYR IV SCH ×2 (09:26→21:17)
[2022-07-19] MEDS: METOPROLOL TARTRATE 25 MG TAB PO SCH ×2 (09:26→21:17)
[2022-07-19] MEDS: ASPirin 81 mg TAB PO SCH (09:26)
[2022-07-19] MEDS: ENOXAPARIN SOD 40 MG/0.4 ML SYRINGE SC SCH ×2 (09:27→21:15)
[2022-07-19] MEDS: INSULIN LANTUS (GLARGINE) 1 /0.01ml (100units/ml) SC SCH ×2 (10:11→21:55)
[2022-07-19] MEDS: ATORVASTATIN 20 MG TAB PO SCH (21:16)
[2022-07-20] VITALS (99 sets, daily range): BP systolic 94–149; BP diastolic 35–69
[2022-07-20] MEDS: ACCU-CHEK COMFORT CURVE STRIP VI SCH ×4 (00:20→18:10)
[2022-07-20] MEDS: InsuLIN REG 1unit/0.01ml Soln (100units/ml) SC SCH ×4 (00:21→18:10)
[2022-07-20] MEDS: FREE WATER GT SCH ×6 (02:03→22:00)
[2022-07-20] MEDS: fentaNYL Drip 2500mCg/250mlNS 250 ML IV SCH ×3 (02:38→23:16)
[2022-07-20 04:02] LABS: BUN/Creatinine Ratio 58.2; Calcium 8.7 mg/dL (8.5-10.1); Potassium 3.9 mmol/L (3.5-5.1)
[2022-07-20 04:04] LABS: Basophils # (auto) 0.1 10 ^3/uL (0-0.2); Basophils % (auto) 0.7 % (0.0-2.0); Eosinophils # (auto) 0.2 10 ^3/uL (0-0.8); Hemoglobin 9.1 g/dL (13.5-17.5); Lymphocytes # (auto) 0.1 10 ^3/uL (0.4-5.4); Lymphocytes % (auto) 1.6 % (10.0-50.0); Mean Corpuscular Hemoglobin 32.6 pg (28.0-32.0); Mean Corpuscular Hgb Conc. 32.6 g/dL (32.0-36.0); Monocytes # (auto) 0.2 10 ^3/uL (0-1.3); Monocytes % (auto) 2.5 % (0.0-12.0); Neutrophils # (auto) 8.9 10 ^3/uL (1.6-8.6); Neutrophils % (auto) 93.2 % (37.0-80.0); Nucleated Red Blood Cells % 0.1 %; White Blood Cell 9.6 10^3/uL (4.4-10.8)
[2022-07-20] MEDS: MIDAZOLAM DRIP 50 mg/50mL 50 ML IV SCH ×3 (04:37→17:55)
[2022-07-20] MEDS: MEROPENEM 1GM IVPB 100 ML IV SCH ×3 (05:50→22:09)
[2022-07-20] MEDS: ENOXAPARIN SOD 40 MG/0.4 ML SYRINGE SC SCH ×2 (09:25→22:10)
[2022-07-20] MEDS: PANTOPRAZOLE 40 MG/10 ML VIAL INJ IV SCH (09:25)
[2022-07-20] MEDS: SODIUM CHLOR 0.9% PF (SALINE LOCK) 10ML VIAL/SYR IV SCH ×2 (09:26→22:09)
[2022-07-20] MEDS: ASPirin 81 mg TAB PO SCH (09:26)
[2022-07-20] MEDS: METOPROLOL TARTRATE 25 MG TAB PO SCH ×2 (09:26→22:10)
[2022-07-20] MEDS: Nepro With Carb Steady 1 Liter Bottle GT SCH (09:30)
[2022-07-20] MEDS: ACETAMINOPHEN 500 MG TAB PO PRN (09:57)
[2022-07-20] MEDS: INSULIN LANTUS (GLARGINE) 1 /0.01ml (100units/ml) SC SCH ×2 (10:35→22:26)
[2022-07-20] MEDS: D5W 5% 1,000 ML IV SCH ×3 (10:36→19:56)
[2022-07-20 10:44] LABS: Urine Bacteria FEW /hpf (None Seen); Urine Blood 3+ /uL (Negative); Urine Budding Yeast MANY /hpf (None Seen); Urine Hyaline Cast MANY /lpf (0 - 2); Urine Specific Gravity 1.019 (1.001-1.035); Urine WBC 340 /hpf (0 - 3); Urine WBC Clumps PRESENT /hpf (None Seen)
[2022-07-20] MEDS ORDERED: BUMETANIDE 2.5mg/10ml (0.25 mg/ml) INJ IV ONE (19:00)
[2022-07-20] MEDS: ALBUTEROL SULF 2.5 MG/0.5ML(0.5%) NEB SOLN NEB PRN (19:35)
[2022-07-20] MEDS: IPRATROPIUM BROM 0.5 MG/2.5ML INH SOL NEB PRN (19:35)
[2022-07-20] MEDS: ATORVASTATIN 20 MG TAB PO SCH (22:10)
[2022-07-21] VITALS (104 sets, daily range): BP systolic 79–137; BP diastolic 24–96
[2022-07-21] MEDS: ACCU-CHEK COMFORT CURVE STRIP VI SCH ×4 (00:04→18:15)
[2022-07-21] MEDS: FREE WATER GT SCH ×3 (02:00→10:54)
[2022-07-21] MEDS: MIDAZOLAM DRIP 50 mg/50mL 50 ML IV SCH ×5 (03:37→23:40)
[2022-07-21 04:36] LABS: Basophils # (auto) 0 10 ^3/uL (0-0.2); Basophils % (auto) 0.6 % (0.0-2.0); Eosinophils # (auto) 0.2 10 ^3/uL (0-0.8); Hematocrit 27.2 % (41.0-53.0); Hemoglobin 9.1 g/dL (13.5-17.5); Lymphocytes # (auto) 0.1 10 ^3/uL (0.4-5.4); Lymphocytes % (auto) 1.3 % (10.0-50.0); Mean Corpuscular Hgb Conc. 33.4 g/dL (32.0-36.0); Monocytes # (auto) 0.2 10 ^3/uL (0-1.3); Neutrophils # (auto) 7.8 10 ^3/uL (1.6-8.6); Neutrophils % (auto) 94.1 % (37.0-80.0); Nucleated Red Blood Cells % 0.1 %; Red Blood Cells 2.74 10^6/uL (4.5-5.90); Red Cell Distribution Width 14.8 % (11.8-14.3); White Blood Cell 8.3 10^3/uL (4.4-10.8)
[2022-07-21 04:51] LABS: BUN/Creatinine Ratio 46.9; Calcium 8.4 mg/dL (8.5-10.1); Potassium 3.7 mmol/L (3.5-5.1)
[2022-07-21] MEDS: InsuLIN REG 1unit/0.01ml Soln (100units/ml) SC SCH ×4 (06:32→18:00)
[2022-07-21] MEDS: MEROPENEM 1GM IVPB 100 ML IV SCH ×3 (06:34→21:55)
[2022-07-21] MEDS: D5W 5% 1,000 ML IV SCH ×2 (06:36→10:56)
[2022-07-21] MEDS: fentaNYL Drip 2500mCg/250mlNS 250 ML IV SCH ×2 (09:11→18:19)
[2022-07-21] MEDS: SODIUM CHLOR 0.9% PF (SALINE LOCK) 10ML VIAL/SYR IV SCH ×3 (10:00→21:56)
[2022-07-21] MEDS: INSULIN LANTUS (GLARGINE) 1 /0.01ml (100units/ml) SC SCH ×2 (10:00→22:00)
[2022-07-21] MEDS: METOPROLOL TARTRATE 25 MG TAB PO SCH ×2 (10:00→21:56)
[2022-07-21] MEDS: ASPirin 81 mg TAB PO SCH (10:16)
[2022-07-21] MEDS: ENOXAPARIN SOD 40 MG/0.4 ML SYRINGE SC SCH ×2 (10:16→21:55)
[2022-07-21] MEDS: PANTOPRAZOLE 40 MG/10 ML VIAL INJ IV SCH (10:16)
[2022-07-21] MEDS: ALBUTEROL SULF 2.5 MG/0.5ML(0.5%) NEB SOLN NEB PRN (12:15)
[2022-07-21] MEDS ORDERED: DOPamine 1600MCG/ML D5W 250 ML IV SCH (12:15)
[2022-07-21] MEDS: IPRATROPIUM BROM 0.5 MG/2.5ML INH SOL NEB PRN (12:15)
[2022-07-21 12:24] LABS: INR 1.04 (0.9-1.15)
[2022-07-21] MEDS ORDERED: NOREPINEPHRINE 8 MG/250ML KIT 250 ML IV ONE (13:39)
[2022-07-21] MEDS: NOREPINEPHRINE 8 MG/250ML KIT 250 ML IV SCH (13:51)
[2022-07-21] MEDS ORDERED: LIDOCAINE 1% (LOCAL ANESTH.) PF 5ml SDV ID ONE (14:15)
[2022-07-21] MEDS: METOCLOPRAMIDE HCL 5MG/ml INJ 2ml VIAL IV SCH ×2 (14:28→21:54)
[2022-07-21 22:39] LABS: Magnesium 2.6 mg/dL (1.6-2.6); Potassium 4.1 mmol/L (3.5-5.1)
[2022-07-22] VITALS (107 sets, daily range): BP systolic 84–133; BP diastolic 32–71
[2022-07-22] MEDS: D5W 5% 1,000 ML IV SCH ×3 (03:59→19:51)
[2022-07-22] MEDS: MIDAZOLAM DRIP 50 mg/50mL 50 ML IV SCH ×4 (04:00→21:52)
[2022-07-22] MEDS: fentaNYL Drip 2500mCg/250mlNS 250 ML IV SCH ×3 (04:01→23:55)
[2022-07-22 04:09] LABS: Basophils # (auto) 0.1 10 ^3/uL (0-0.2); Basophils % (auto) 1.2 % (0.0-2.0); Eosinophils # (auto) 0.1 10 ^3/uL (0-0.8); Eosinophils % (auto) 1.7 % (0.0-7.0); Hematocrit 25.9 % (41.0-53.0); Hemoglobin 8.5 g/dL (13.5-17.5); Lymphocytes # (auto) 0.2 10 ^3/uL (0.4-5.4); Lymphocytes % (auto) 1.9 % (10.0-50.0); Mean Corpuscular Hemoglobin 32.4 pg (28.0-32.0); Mean Corpuscular Hgb Conc. 32.8 g/dL (32.0-36.0); Mean Corpuscular Volume 98.8 fL (80.0-100.0); Monocytes # (auto) 0.2 10 ^3/uL (0-1.3); Monocytes % (auto) 2.7 % (0.0-12.0); Neutrophils # (auto) 7.5 10 ^3/uL (1.6-8.6); Neutrophils % (auto) 92.5 % (37.0-80.0); Nucleated Red Blood Cells % 0.1 %; Red Blood Cells 2.62 10^6/uL (4.5-5.90); Red Cell Distribution Width 14.7 % (11.8-14.3); White Blood Cell 8.1 10^3/uL (4.4-10.8)
[2022-07-22 04:34] LABS: BUN/Creatinine Ratio 43.9; Calcium 7.7 mg/dL (8.5-10.1); Potassium 4.2 mmol/L (3.5-5.1)
[2022-07-22] MEDS: MEROPENEM 1GM IVPB 100 ML IV SCH ×3 (05:37→21:51)
[2022-07-22] MEDS: InsuLIN REG 1unit/0.01ml Soln (100units/ml) SC SCH ×4 (05:38→18:53)
[2022-07-22] MEDS: ACCU-CHEK COMFORT CURVE STRIP VI SCH ×5 (05:38→23:55)
[2022-07-22] MEDS: METOCLOPRAMIDE HCL 5MG/ml INJ 2ml VIAL IV SCH ×3 (05:38→21:51)
[2022-07-22] MEDS: SODIUM CHLOR 0.9% PF (SALINE LOCK) 10ML VIAL/SYR IV SCH ×4 (07:58→21:52)
[2022-07-22] MEDS: PANTOPRAZOLE 40 MG/10 ML VIAL INJ IV SCH (10:36)
[2022-07-22] MEDS: AMIODARONE HCL 200 MG TAB PO SCH ×2 (10:37→21:51)
[2022-07-22] MEDS: ENOXAPARIN SOD 40 MG/0.4 ML SYRINGE SC SCH ×2 (10:37→21:51)
[2022-07-22] MEDS: INSULIN LANTUS (GLARGINE) 1 /0.01ml (100units/ml) SC SCH ×2 (10:38→22:19)
[2022-07-22] MEDS: PHENYLEPHRINE INJ 80 MG in SODIUM CHL 0.9% 242 ML IV SCH (11:00)
[2022-07-22] MEDS: NOREPINEPHRINE 8 MG/250ML KIT 250 ML IV SCH (12:44)
[2022-07-23] VITALS (108 sets, daily range): BP systolic 85–134; BP diastolic 32–69
[2022-07-23] MEDS: InsuLIN REG 1unit/0.01ml Soln (100units/ml) SC SCH ×5 (00:12→23:38)
[2022-07-23] MEDS: NOREPINEPHRINE 8 MG/250ML KIT 250 ML IV SCH ×2 (01:35→09:53)
[2022-07-23] MEDS: MIDAZOLAM DRIP 50 mg/50mL 50 ML IV SCH ×5 (03:10→23:38)
[2022-07-23 04:16] LABS: Hemoglobin 8.4 g/dL (13.5-17.5); Red Blood Cells 2.48 10^6/uL (4.5-5.90); Red Cell Distribution Width 14.7 % (11.8-14.3); White Blood Cell 8.8 10^3/uL (4.4-10.8)
[2022-07-23 04:19] LABS: Hematocrit 24.4 % (41.0-53.0); Mean Corpuscular Hemoglobin 33.8 pg (28.0-32.0); Mean Corpuscular Hgb Conc. 34.2 g/dL (32.0-36.0); Mean Corpuscular Volume 98.7 fL (80.0-100.0)
[2022-07-23 04:23] LABS: Basophils % (manual) 0 (0.0-2.0); Blast Cells 0; Metamyelocytes % 0; Myelocytes % 0; Promyelocytes % 0; Reactive Lymphocytes 0
[2022-07-23 04:41] LABS: BUN/Creatinine Ratio 39.3; Potassium 4.4 mmol/L (3.5-5.1)
[2022-07-23 04:57] LABS: Band Neutrophils % (manual) 7; Eosinophils % (manual) 1 (0-7); Lymphocytes % (manual) 2 (10.0-50.0); Monocytes % (manual) 2 (0-12)
[2022-07-23] MEDS ORDERED: CALCIUM GLUC 1,000mg/50ml-NS 50 ML IV ONE (05:30)
[2022-07-23] MEDS: ACCU-CHEK COMFORT CURVE STRIP VI SCH ×4 (06:13→23:38)
[2022-07-23] MEDS: MEROPENEM 1GM IVPB 100 ML IV SCH ×3 (06:13→21:16)
[2022-07-23] MEDS: METOCLOPRAMIDE HCL 5MG/ml INJ 2ml VIAL IV SCH ×3 (06:13→21:15)
[2022-07-23] MEDS: fentaNYL Drip 2500mCg/250mlNS 250 ML IV SCH ×2 (06:58→17:31)
[2022-07-23] MEDS: SODIUM CHLOR 0.9% PF (SALINE LOCK) 10ML VIAL/SYR IV SCH ×3 (08:44→21:16)
[2022-07-23] MEDS: AMIODARONE HCL 200 MG TAB PO SCH ×2 (08:45→21:16)
[2022-07-23] MEDS: ENOXAPARIN SOD 40 MG/0.4 ML SYRINGE SC SCH ×2 (08:46→21:15)
[2022-07-23] MEDS: PANTOPRAZOLE 40 MG/10 ML VIAL INJ IV SCH (09:30)
[2022-07-23] MEDS: PHENYLEPHRINE INJ 80 MG in SODIUM CHL 0.9% 242 ML IV SCH (09:45)
[2022-07-23] MEDS: INSULIN LANTUS (GLARGINE) 1 /0.01ml (100units/ml) SC SCH ×2 (10:00→21:40)
[2022-07-23] MEDS ORDERED: BUMETANIDE 2.5mg/10ml (0.25 mg/ml) INJ IV ONE (11:45)
[2022-07-23] MEDS: D5W 5% 1,000 ML IV SCH (11:45)
[2022-07-23] MEDS: NOREPINEPHRINE BITARTRATE 32 MG in SODIUM CHL 0.9% 218 ML IV SCH (12:50)
[2022-07-23] MEDS ORDERED: ARTIFICIAL TEARS 15ml EACHEYE PRN (15:30)
[2022-07-24] VITALS (105 sets, daily range): BP systolic 82–118; BP diastolic 28–57
[2022-07-24] MEDS: fentaNYL Drip 2500mCg/250mlNS 250 ML IV SCH ×2 (01:47→17:08)
[2022-07-24 04:23] LABS: Eosinophils # (auto) 0.1 10 ^3/uL (0-0.8); Eosinophils % (auto) 0.6 % (0.0-7.0); Hemoglobin 7.6 g/dL (13.5-17.5); Lymphocytes # (auto) 0.2 10 ^3/uL (0.4-5.4); Monocytes # (auto) 0.3 10 ^3/uL (0-1.3); Monocytes % (auto) 3.5 % (0.0-12.0); Red Cell Distribution Width 15.3 % (11.8-14.3)
[2022-07-24 04:26] LABS: Basophils # (auto) 0.1 10 ^3/uL (0-0.2); Basophils % (auto) 0.7 % (0.0-2.0); Hematocrit 23.5 % (41.0-53.0); Lymphocytes % (auto) 2.1 % (10.0-50.0); Mean Corpuscular Hemoglobin 32.2 pg (28.0-32.0); Mean Corpuscular Hgb Conc. 32.2 g/dL (32.0-36.0); Mean Corpuscular Volume 99.8 fL (80.0-100.0); Neutrophils # (auto) 8.7 10 ^3/uL (1.6-8.6); Neutrophils % (auto) 93.1 % (37.0-80.0); Red Blood Cells 2.35 10^6/uL (4.5-5.90); White Blood Cell 9.3 10^3/uL (4.4-10.8)
[2022-07-24 04:38] LABS: BUN/Creatinine Ratio 31.4
[2022-07-24 04:44] LABS: Calcium 5.4 mg/dL (8.5-10.1)
[2022-07-24] MEDS: CALCIUM GLUC 1,000mg/50ml-NS 50 ML IV SCH ×2 (06:17→06:50)
[2022-07-24] MEDS: ACCU-CHEK COMFORT CURVE STRIP VI SCH ×3 (06:17→16:42)
[2022-07-24] MEDS: METOCLOPRAMIDE HCL 5MG/ml INJ 2ml VIAL IV SCH ×3 (06:17→21:59)
[2022-07-24] MEDS: InsuLIN REG 1unit/0.01ml Soln (100units/ml) SC SCH ×3 (06:44→16:41)
[2022-07-24] MEDS: MIDAZOLAM DRIP 50 mg/50mL 50 ML IV SCH ×3 (06:44→22:23)
[2022-07-24] MEDS: MEROPENEM 1GM IVPB 100 ML IV SCH ×3 (07:27→21:59)
[2022-07-24] MEDS: VASOPRESSIN 50 UNITS in D5W 5% 247.5 ML IV SCH ×2 (07:46→13:15)
[2022-07-24] MEDS: PHENYLEPHRINE INJ 80 MG in SODIUM CHL 0.9% 242 ML IV SCH ×2 (07:47→17:15)
[2022-07-24] MEDS: SODIUM CHLOR 0.9% PF (SALINE LOCK) 10ML VIAL/SYR IV SCH ×2 (08:42→21:59)
[2022-07-24] MEDS: PANTOPRAZOLE 40 MG/10 ML VIAL INJ IV SCH (08:42)
[2022-07-24] MEDS: ENOXAPARIN SOD 40 MG/0.4 ML SYRINGE SC SCH ×2 (08:43→21:59)
[2022-07-24] MEDS: AMIODARONE HCL 200 MG TAB PO SCH (08:43)
[2022-07-24] MEDS: INSULIN LANTUS (GLARGINE) 1 /0.01ml (100units/ml) SC SCH ×2 (10:00→22:22)
[2022-07-24] MEDS ORDERED: AMIODARONE 450mg/250ml AE 250 ML IV ONE (10:39)
[2022-07-24] MEDS ORDERED: AMIODARONE HCL (50 MG/ ML) 3 ML VIAL IV ONE (11:00)
[2022-07-24] MEDS ORDERED: AMIODARONE HCL 150 MG in D5W 5% 100 ML IV ONE (11:00)
[2022-07-24] MEDS: AMIODARONE 450mg/250ml AE 250 ML IV SCH ×2 (11:24→16:42)
[2022-07-24] MEDS: D5W 5% 1,000 ML IV SCH (11:24)
[2022-07-24] MEDS: NOREPINEPHRINE BITARTRATE 32 MG in SODIUM CHL 0.9% 218 ML IV SCH (11:48)
[2022-07-24] MEDS ORDERED: DIGOXIN (250MCG/ML) 2 ML AMPULE IV ONE (15:00)
[2022-07-24] MEDS ORDERED: DIGOXIN (250MCG/ML) 2 ML AMPULE ONE (15:05)
[2022-07-25] VITALS (16 sets, daily range): BP systolic 67–116; BP diastolic 0–42
[2022-07-25] MEDS: InsuLIN REG 1unit/0.01ml Soln (100units/ml) SC SCH ×2 (00:45→06:00)
[2022-07-25] MEDS: ACCU-CHEK COMFORT CURVE STRIP VI SCH ×2 (00:45→06:00)
[2022-07-25] MEDS: AMIODARONE 450mg/250ml AE 250 ML IV SCH ×2 (01:30→09:15)
[2022-07-25] MEDS ORDERED: SODIUM BICARBONATE 50ML VIAL 100 ML in SOD CHL 0.45% 1,000 ML IV SCH (03:30)
[2022-07-25] MEDS ORDERED: SODIUM BICARBONATE 8.4 % INJ 50ML VIAL IV ONE ×4 (03:30→04:38)
[2022-07-25 03:35] LABS: Hemoglobin 7.6 g/dL (13.5-17.5)
[2022-07-25 03:37] LABS: Hematocrit 25.2 % (41.0-53.0); Mean Corpuscular Hgb Conc. 30.1 g/dL (32.0-36.0); Mean Corpuscular Volume 106.1 fL (80.0-100.0); Red Blood Cells 2.38 10^6/uL (4.5-5.90); Red Cell Distribution Width 16.4 % (11.8-14.3)
[2022-07-25 04:02] LABS: Albumin 1.1 g/dL (3.4-5.0); Magnesium 3.1 mg/dL (1.6-2.6)
[2022-07-25 04:05] LABS: Basophils % (manual) 0 (0.0-2.0); Blast Cells 0; Eosinophils % (manual) 0 (0-7); Metamyelocytes % 0; Myelocytes % 0; Promyelocytes % 0; Reactive Lymphocytes 0
[2022-07-25 04:10] LABS: Bilirubin, Total 2.7 mg/dL (0.2-1.0); Total Protein 5.2 g/dL (6.4-8.2)
[2022-07-25] MEDS ORDERED: ALBUMIN 25% 100 ML IV ONE ×4 (04:17→05:30)
[2022-07-25 04:22] LABS: Potassium 8.5 mmol/L (3.5-5.1)
[2022-07-25 04:23] LABS: BUN/Creatinine Ratio 27.6
[2022-07-25] MEDS ORDERED: DEXTROSE (50%) 50ML SYRG IV ONE ×2 (04:30→08:30)
[2022-07-25] MEDS ORDERED: SODIUM ZIRCONIUM CYCL 10 GM PAK PO ONE (04:30)
[2022-07-25] MEDS ORDERED: ALBUTEROL SULF 2.5 MG/0.5ML(0.5%) NEB SOLN NEB ONE ×2 (04:30→08:30)
[2022-07-25] MEDS ORDERED: InsuLIN REG 1unit/0.01ml Soln (100units/ml) IV ONE ×2 (04:30→08:30)
[2022-07-25] MEDS ORDERED: CALCIUM GLUC 1,000mg/50ml-NS 50 ML IV ONE ×2 (04:30→04:36)
[2022-07-25] MEDS ORDERED: PHENYLEPHRINE HCL 10 MG/ML VL ONE (04:35)
[2022-07-25] MEDS ORDERED: SODIUM CHLORIDE 0.9% 500 ML IV ONE (05:30)
[2022-07-25] MEDS: MEROPENEM 1GM IVPB 100 ML IV SCH (06:00)
[2022-07-25] MEDS: METOCLOPRAMIDE HCL 5MG/ml INJ 2ml VIAL IV SCH (06:00)
[2022-07-25 06:46] LABS: Band Neutrophils % (manual) 18; Lymphocytes % (manual) 2 (10.0-50.0); Monocytes % (manual) 2 (0-12)
[2022-07-25] MEDS ORDERED: EPINEPHrine HCL 250 ML IV ONE (07:22)
[2022-07-25] MEDS ORDERED: EPINEPHrine HCL 250 ML IV SCH ×3 (07:30→08:15)
[2022-07-25] MEDS ORDERED: FUROSEMIDE 40 MG/4 ML VIAL IV ONE (08:30)
[2022-07-25] MEDS ORDERED: SODIUM BICARBONATE 8.4% INJ 50ML SYRINGE IV ONE (08:30)
[2022-07-25] MEDS: SODIUM CHLOR 0.9% PF (SALINE LOCK) 10ML VIAL/SYR IV SCH (09:43)
[2022-07-25] MEDS: PANTOPRAZOLE 40 MG/10 ML VIAL INJ IV SCH (09:43)
[2022-07-25] MEDS: ENOXAPARIN SOD 40 MG/0.4 ML SYRINGE SC SCH (09:44)
[2022-07-25] MEDS: INSULIN LANTUS (GLARGINE) 1 /0.01ml (100units/ml) SC SCH (10:10)
[2022-07-26] MEDS ORDERED: DIGOXIN (250MCG/ML) 2 ML AMPULE IV SCH (10:00)
== END 2022-07-25 15:33 | DRG 870 ==
LOC: ER 08:16 → TELE 11:55 → ICU WEST 18:36 → TELE 20:13 → ICU WEST 07-05 15:46
PROVIDERS: ADMIT Registered Nurse; ATTEND Internal Medicine Pulmonary Disease
PROC: 5A1955Z Respiratory Ventilation, Greater than 96 Consecutive Hours (ICD-10-PCS; principal; 2022-07-04)
PROC: 0BH17EZ Insertion of Endotracheal Airway into Trachea, Via Natural or Artificial Opening (ICD-10-PCS; 2022-07-04)
PROC: 06HM33Z Insertion of Infusion Device into Right Femoral Vein, Percutaneous Approach (ICD-10-PCS; 2022-07-04)
PROC: XW033E5 Introduction of Remdesivir Anti-infective into Peripheral Vein, Percutaneous Approach, New Technology Group 5 (ICD-10-PCS; 2022-07-04)
PROC: 05HB33Z Insertion of Infusion Device into Right Basilic Vein, Percutaneous Approach (ICD-10-PCS; 2022-07-05)
PROC: B54MZZA Ultrasonography of Right Upper Extremity Veins, Guidance (ICD-10-PCS; 2022-07-05)
PROC: 02HV33Z Insertion of Infusion Device into Superior Vena Cava, Percutaneous Approach (ICD-10-PCS; 2022-07-21)
PROC: B548ZZA Ultrasonography of Superior Vena Cava, Guidance (ICD-10-PCS; 2022-07-21)
DX: A41.89 Other specified sepsis (principal); J12.82 Pneumonia due to coronavirus disease 2019; U07.1 COVID-19; J96.01 Acute respiratory failure with hypoxia; N17.0 Acute kidney failure with tubular necrosis; R65.21 Severe sepsis with septic shock; E87.0 Hyperosmolality and hypernatremia; J98.11 Atelectasis; I13.0 Hypertensive heart and chronic kidney disease with heart failure and stage 1 through stage 4 chronic kidney disease, or unspecified chronic kidney disease; I47.1 Supraventricular tachycardia; I47.20 Ventricular tachycardia, unspecified; I82.612 Acute embolism and thrombosis of superficial veins of left upper extremity; Z66 Do not resuscitate; E78.5 Hyperlipidemia, unspecified; E88.09 Other disorders of plasma-protein metabolism, not elsewhere classified; D63.1 Anemia in chronic kidney disease; E11.22 Type 2 diabetes mellitus with diabetic chronic kidney disease; E11.51 Type 2 diabetes mellitus with diabetic peripheral angiopathy without gangrene; E11.65 Type 2 diabetes mellitus with hyperglycemia; E87.5 Hyperkalemia; N18.9 Chronic kidney disease, unspecified; I50.9 Heart failure, unspecified; I16.0 Hypertensive urgency; I48.91 Unspecified atrial fibrillation; I71.40 Abdominal aortic aneurysm, without rupture, unspecified; R74.01 Elevation of levels of liver transaminase levels; R79.89 Other specified abnormal findings of blood chemistry; E66.01 Morbid (severe) obesity due to excess calories; Z82.49 Family history of ischemic heart disease and other diseases of the circulatory system; Z28.21 Immunization not carried out because of patient refusal; Z85.46 Personal history of malignant neoplasm of prostate; Z86.718 Personal history of other venous thrombosis and embolism; Z90.79 Acquired absence of other genital organ(s); Z68.32 Body mass index [BMI] 32.0-32.9, adult; Z23 Encounter for immunization
CPT/HCPCS: 31500; 36415; 36556; 36569; 36600; 71045; 71275; 76775; 80048; 80053; 80061; 80307; 80320; 81001; 82010; 82306; 82550; 82570; 82728; 82805; 82962; 83036; 83605; 83615; 83735; 83880; 83970; 84100; 84132; 84156; 84300; 84443; 84484; 85007; 85025; 85027; 85379; 85610; 86141; 86704; 86706; 86708; 86803; 87040; 87070; 87077; 87081; 87086; 87186; 87205; 87340; 87426; 87804; 93005; 93306; 93970; 93971; 94002; 94003; 94640; 96365; 96375; 99291; A4565; C9113; G0378; J0171; J0330; J0696; J1100; J1815; J2185; J2250; J2704; J7060; P9047